=== PATIENT | male | born 1965 | race Caucasian/White ===

== ENCOUNTER → 2017-10-29 16:34 | Outpatient (CLI) | payer OTHER, SELFPAY ==
[2017-10-29 17:27] LABS: AST(SGOT) 44 U/L (15-37); Alanine Aminotransfer ALT/SGPT 59 U/L (16-61); Albumin, Serum 4.1 g/dL (3.2-5.0); Alkaline Phosphatase 107 U/L (45-117); Anion Gap 6 (5-15); BUN 37 mg/dL (7-18); BUN/Creat Ratio 22.7 RATIO (10-20); Bilirubin, Direct 0.26 mg/dL (0.00-0.30); Calcium,Total 8.6 mg/dL (8.5-10.1); Chloride 103 mmol/L (98-107); Creatinine, Serum 1.63 mg/dL (0.70-1.30); EST Glomerular Filtration Rate 47 mL/min (>60); Est Glom Filt Rate - Afr Amer 57 mL/min (>60); Globulin 3.8 g/dL (2.2-4.2); Glucose 91 mg/dL (74-106); Potassium 4.2 mmol/L (3.5-5.1); Protein, Total 7.9 g/dL (6.4-8.2); Sodium Level 135 mmol/L (136-145); T4 Total, Thyroxin 11.3 ug/dL (4.5-12.1); Thyroid Stim Hormone (TSH) 2.18 uIU/mL (0.358-3.74)
== END ==
PROVIDERS: Family Provider Family Medicine; PCP Family Medicine; Visit Provider Internal Medicine Cardiovascular Disease
DX: I48.92 Unspecified atrial flutter (principal); Z95.810 Presence of automatic (implantable) cardiac defibrillator
CPT/HCPCS: 36415; 80048; 80076; 84436; 84443

== ENCOUNTER → 2018-09-02 14:46 | Outpatient (CLI) | payer OTHER, SELFPAY ==
[2018-08-25 15:53] VITALS: BMI 35.2
--- NOTE | 2018-09-02 14:48 | ECHOCS_ITS ---
Reason For Study: Afib/Flutter Procedure This was a 2D Doppler, Color Flow transthoracic echocardiogram. The study was technically difficult. Contrast injection was performed. Exam performed in department. Left Ventricle Normal LV size. The estimated ejection fraction is 30 %. Severe global left ventricular systolic dysfunction. There is severe global hypokinesis of the left ventricle. Right Ventricle Mildly dilated right ventricle. Mild global right ventricular systolic dysfunction. Atria The left atrium is severely enlarged. Normal right atrium. Mitral Valve Mitral valve not well visualized. Tricuspid Valve The tricuspid valve is not well visualized. Mild (1+) tricuspid valve insufficiency. Pulmonary artery systolic pressure is 33 mmHg. Great Vessels Normal aortic root. Pericardium/Pleural No pericardial effusion. Medication 22 gauge I.V. with prn adaptor inserted into right arm. Diluted definity 8ml given slow IV push to enhance endocardial definition. MMode/2D Measurements & Calculations LVIDd: 5.3 cm IVSd: 0.93 cm Ao root diam: 3.7 cm LVIDs: 4.9 cm LVPWd: 0.86 cm LA dimension: 4.6 cm FS: 8.5 % LAV(MOD-sp4): 107.8 ml LA A4 area: 31.5 cm2 Doppler Measurements & Calculations MV E max zackary: 77.6 cm/sec MV V2 max: 80.9 cm/sec MV P1/2t max zackary: 82.4 cm/sec MV max P.6 mmHg MV P1/2t: 52.5 msec MV V2 mean: 40.0 cm/sec MV mean P.78 mmHg MV dec slope: 459.9 cm/sec2 MV V2 VTI: 17.8 cm MVA(P1/2t): 4.2 cm2 Ao V2 max: 78.8 cm/sec LV V1 max: 75.4 cm/sec PA V2 max: 55.1 cm/sec Ao max P.5 mmHg LV V1 max P.3 mmHg TR max zackary: 265.8 cm/sec TR max P.3 mmHg Interpretation Summary Normal LV size. Severe global left ventricular systolic dysfunction. The estimated ejection fraction is 30 %. Contrast injection was performed. Compared to previous study, the left ventricular systolic function is the same.. Ordering Physician: Philip Paz Referring Physician: Philip Paz Performed By: Steve Monroy RCS
== END ==
PROVIDERS: Family Provider Family Medicine; PCP Family Medicine; Referring Provider Internal Medicine Cardiovascular Disease; Visit Provider Internal Medicine Cardiovascular Disease
DX: I25.5 Ischemic cardiomyopathy (principal)
CPT/HCPCS: 93306; Q9957; A4216; C8929

== ENCOUNTER 2019-06-29 08:11 | Day surgery (SDC) | payer OTHER, SELFPAY ==
--- NOTE | 2019-06-05 04:24 | HP_ITS ---
Patient seen and evaluated prior to generator change on day of procedure. No changes noted from office visit. HPI HPI History of Present Illness Surgical H&P: Yes Details: BHAVANI PAYNE, is a 54 M who presents to the office today for a follow-up visit. He has a history of coronary artery disease status post previous anterolateral myocardial infarction. He underwent angioplasty and stenting of the left anterior descending artery. He also has a history of atrial flutter status post ablation twice. In addition he has hypertension hyperlipidemia left ventricular systolic dysfunction with an estimated ejection fraction of 35%. He recently presented again with atypical atrial flutter and was seen by the supervisor ticket sales. He is not always aware of this rhythm. He had been doing quite well on his amiodarone but there were issues about possible side effects and the supervisor ticket sales considered switching him to Tikosyn. He however read the side effects and says that he is not particularly enthused about going on this medication. Pt denies chest, arm, jaw, or neck discomfort. His exercise tolerance is stable. Pt denies symptoms of CHF, palpitations, lightheadedness, dizziness, near syncopal or syncopal episodes. Pt denies edema or claudication issues. Pt. denies orthopnea, PND, fever, chills, blood in urine, blood in stool, myalgia, or unexplainable fatigue. 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: No Is patient in pain?: No Allergies cat dander Allergy (Verified 06/05/19 15:07) Eyes swelling and SOB Medications Zolpidem Tartrate [Ambien] 10 mg PO QHS 08/03/16 [History Confirmed 06/05/19] lansoprazole 15 mg delayed release,disintegrating tablet 15 mg PO QDAY PRN 10/29/17 [History Confirmed 06/05/19] amiodarone 200 mg tablet 200 mg PO QDAY #90 tab 08/26/18 [Rx Confirmed 06/05/19] apixaban 5 mg tablet 5 mg PO BID #180 tab 04/24/19 [Rx Confirmed 06/05/19] furosemide 40 mg tablet 40 mg PO DAILY #90 tab 04/24/19 [Rx Confirmed 06/05/19] levothyroxine 25 mcg tablet 25 mcg PO DAILY #90 tab 04/24/19 [Rx Confirmed 06/05/19] spironolactone 25 mg tablet 25 mg PO DAILY #90 tab 04/24/19 [Rx Confirmed 06/05/19] atorvastatin 40 mg tablet 40 mg PO QHS #90 tab 05/08/19 [Rx Confirmed 06/05/19] carvedilol 25 mg tablet 25 mg PO BID #180 tab 05/08/19 [Rx Confirmed 06/05/19] lisinopril 10 mg tablet 10 mg PO DAILY 06/05/19 [History Confirmed 06/05/19] [facility] Medical History (Updated 02/23/19 @ 10:36 by COOKIE Pantoja) Hypertension (Chronic) Ischemic cardiomyopathy (Chronic) Obesity (BMI 30.0-34.9) (Chronic) Atrial flutter, paroxysmal (Chronic) CAD (coronary artery disease) (Chronic) Diabetes mellitus, type II (Chronic) Hyperlipidemia (Chronic) STEMI (ST elevation myocardial infarction) (Chronic) GERD (gastroesophageal reflux disease) (Chronic) Surgical History (Updated 10/29/17 @ 11:04 by Sandra Anaya) Biventricular ICD (implantable cardioverter-defibrillator) in place (Chronic) History of cardiac radiofrequency ablation (RFA) (Chronic) History of tonsillectomy (Chronic) Hx of inguinal hernia repair (Chronic) Stented coronary artery (Chronic) Family History (Updated 10/29/17 @ 11:00 by Sandra Anaya) Mother CAD (coronary artery disease) Diabetes Father CAD (coronary artery disease) Diabetes Brother Diabetes Social History (Updated 06/05/19 @ 16:24 by LAUREN Mijares) Smoking Status: Former smoker alcohol intake: never substance use type: does not use caffeine: No what type of physical activity do you participate in: walking frequency: 5-6 times per week duration: 30-45 minutes/day seatbelt use: always do you feel safe at home: Yes ROS Const Const: Negative for fatigue, weakness, body ache, fever(s) or chills ENT ENT: Negative for dizziness Cardio Chest Pain: No Palpitations: No Edema: None Muscle aches with walking: None Resp Respiratory: Negative for SOB with activity, SOB at rest, SOB orthopnea\SOB lying down or paroxysmal nocturnal dyspnea GI GI: Negative nausea, vomiting blood/hematemesis, bright, red blood in stools or black,tarry stools : Negative for hematuria or frequent nighttime urination/ nocturia Musc Musc: Negative for muscle aches/ myalgia Skin Skin: Negative non-healing lesions or rash Neuro Neuro: Negative for dizziness, lightheadedness, near syncope, syncope, orthostatic symptoms or weakness Endo Endo: Negative for fatigue Allergy Allergy/Immunology: Negative for rash Cardiology Exam Const Appearance: cooperative, healthy appearing, comfortable and no acute distress Nutritional Appearance: well nourished and obese Orientation: alert, awake and oriented x3 Head Head: normal to inspection Ears: hearing grossly normal bilaterally Nose: external nose normal Face and Sinus: face symmetric Mouth: oral mucosae normal Eyes General: appearance normal, both eyes and all related structures Eyelids: eyelids normal EOM: EOM intact bilaterally Neck Neck: normal visual inspection and no JVD Carotids: normal carotid upstroke Chest Chest inspection: normal inspection of the chest, symmetric chest movement and normal respiratory effort; negative cough Auscultation: Bilateral: Clear to Auscultation Cardio Rate: regular rate Rhythm: regular rhythm Heart sounds: S1 normal and S2 normal; negative rub, gallop or murmur GI GI: normal to inspection and obese Neuro General: alert, awake, oriented x3 and CN's II-XI intact bilaterally Skin Skin: no rashes or lesions noted Extremities Pulses: Normal: Right Posterior Tibial Pulse, Left Posterior Tibial Pulse, Right Radial Pulse, Left Radial Pulse Lower Extremity Edema: None: Bilateral Psych Psychological: normal affect Assessment & Plan 1. Biventricular ICD (implantable cardioverter-defibrillator) in place Z95.810 11/09/14 implant of BIV ICD for ischemic cmp Plan Patient's most recent pacemaker evaluation from 03/24/2019 showed approaching FELIPE. His EKG today in office continues to show ventricular paced rhythm at a rate of 73 bpm. He will undergo generator change with Dr. Menjivar on 06/29/2019. Patient received extensive education regarding medications, laboratory work, urine collection, and chlorhexidine bath prior to procedure. He acknowledged understanding. Orders Orders: 12 Lead EKG performed by [facility] Today 2. Ischemic cardiomyopathy I25.5 Plan He denies any symptoms of acute congestive heart failure. He will continue current medical therapy which includes carvedilol, lisinopril, Lasix, and spironolactone. We will continue to monitor closely. 3. Atherosclerosis of [place] coronary artery of [place] heart without angina pectoris I25.10 Plan Patient denies any chest pain, arm pain, jaw pain, neck pain, shortness of breath, or fatigue suggestive of angina at this time. We will continue to monitor. We will not make any medication regimen changes and will continue risk factor modification. 4. Atrial flutter, paroxysmal I48.92 RFA A-Flutter 02/02/14 @ [facility]; 11/08/2014 ablation of atrial flutter Plan He will continue current medical therapy which includes carvedilol, amiodarone, and Eliquis therapy. He was instructed to hold his Eliquis prior to procedure. Orders Orders: 12 Lead EKG performed by [facility] Today 5. Essential hypertension I10 Plan Patient's blood pressure is well-controlled. We will continue to monitor. We will not make any medication regimen changes. 6. Pure hypercholesterolemia E78.00 Plan He will continue current statin medication. Plan Detail Additional Comments Patient will proceed with generator change with Dr. Menjivar. Thank you for allowing us to participate in the patients plan of care, if you have any questions please do not hesitate to call. This note was generated using a voice recognition system and there may be incorrect words, spelling or punctuation that were not noted when reviewing the office note prior to saving. Coding Level of Care Code Off vis,est,level 2 Diagnoses Biventricular ICD (implantable cardioverter-defibrillator) in place Z95.810 Ischemic cardiomyopathy I25.5 Atherosclerosis of be[place] coronary artery of [place] heart without angina pectoris I25.10 ??Associated angina: without angina ??Coronary Disease-Associated Artery/Lesion type: [place] artery ??[place] vs. transplanted heart: beaver heart Atrial flutter, paroxysmal I48.92 Essential hypertension I10 ??Hypertension type: essential hypertension Pure hypercholesterolemia E78.00 ??Hyperlipidemia type: pure hypercholesterolemia Coding Level of Care Code Off vis,est,level 2 Diagnoses Biventricular ICD (implantable cardioverter-defibrillator) in place Z95.810 Ischemic cardiomyopathy I25.5 Atherosclerosis of [place] coronary artery of [place] heart without angina pectoris I25.10 ??Associated angina: without angina ??Coronary Disease-Associated Artery/Lesion type: [place] artery ??[place] vs. transplanted heart: beaver heart Atrial flutter, paroxysmal I48.92 Essential hypertension I10 ??Hypertension type: essential hypertension Pure hypercholesterolemia E78.00 ??Hyperlipidemia type: pure hypercholesterolemia Supplemental Info Supplemental Information Diagnostics Electrocardiogram 06/05/19 Echocardiogram 09/02/18 Pacemaker Check 03/24/19 06/05/19 1625 <Electronically signed by Saurav Keene> Date _ Saurav MESSINAC
[2019-06-06 09:09] VITALS: BMI 35.6
[2019-06-23 16:04] LABS: Bacteria 0 SEEN /hpf (None Seen); Mucous, Urine 0 SEEN /hpf (<or=2+); Red Blood Cells-Urine 0 SEEN /hpf (0-5); Squamous Epithelial Cells - UA 0 SEEN /hpf (0-5); White Blood Cells 0 SEEN /hpf (0-5)
[2019-06-23 17:12] LABS: Color, Urine Yellow (Yellow); Glucose, Dipstick Normal (Normal); Ketone-Dipstick Negative (Negative); Leukocyte Esterase-Dipstick Negative /ul (Negative); Nitrite-Dipstick Negative (Negative); Occult Blood-Urine Negative /ul (Negative); Protein-Dipstick Negative (Negative); Urine Bilirubin Dipstick Negative (Negative); Urine Clarity Sl. Cloudy (Clear); Urine Urobilinogen Normal (Normal)
[2019-06-23 17:25] LABS: Hematocrit 47.3 % (40-54); Hemoglobin 15.7 g/dL (13.0-16.5); Mean Corp Hgb Conc 33.2 g/dL (32-36); Mean Corpuscular Volume 96.3 fL (80-94); Mean Platelet Vol. 10.9 fl (6.2-12.0); Platelet Count 196 K/mm3 (150-450); RBC Distribution Width CV 12.5 % (11.6-14.6); RBC Distribution Width SD 44.2 fl (35.1-43.9); Red Blood Count 4.91 M/mm3 (4.6-6.2); White Blood Count 8.1 K/mm3 (4.4-11.0)
[2019-06-23 17:31] LABS: International Normalized Ratio 1.5; Prothrombin Time (Protime)PT. 17.5 SECONDS (11.7-14.9)
[2019-06-23 17:51] LABS: Anion Gap 6 (5-15); BUN 26 mg/dL (7-18); BUN/Creat Ratio 17.4 RATIO (10-20); Chloride 102 mmol/L (98-107); Creatinine, Serum 1.49 mg/dL (0.70-1.30); EST Glomerular Filtration Rate 52 mL/min (>60); Est Glom Filt Rate - Afr Amer 63 mL/min (>60); Glucose 95 mg/dL (74-106); Potassium 4.3 mmol/L (3.5-5.1); Sodium Level 135 mmol/L (136-145)
[2019-06-28 09:59] VITALS: BMI 35.8
--- NOTE | 2019-06-29 11:21 | OP.PCM_ITS ---
Report of Operation Date of Procedure: 06/29/19 Description of Surgical Findings:: Preoperative diagnosis is device at end of life for normal battery depletion. Postoperative diagnosis same as above. After informed consent and IV antibiotics the patient was brought to the [facility] catheterization laboratory and the skin over the device was prepped and draped in the usual sterile manner. Intermittent boluses of Versed, and fentanyl were used for sedation and analgesia as well as 1% subcutaneous lidocaine. An incision was made over the pre-existing device. Using blunt and Bovie dissection the pocket was opened and the device was removed. Careful attention was paid not to injure the pre-existing leads. The leads were removed from the device header and they were interrogated. There is normal lead function. Hemostasis was obtained. The pocket was flushed with antibiotic solution. The sponge and needle count were correct. The new device was brought to the field. The leads were placed in the appropriate position in the header and secured by the set screw. The leads and the device were then placed in the pocket. The pocket was closed with a deep layer of running 2-0 Vicryl, a superficial layer of running 4-0 Vicryl, skin with Steri-Strips which were covered with a rolled 4 x 4 and Tegaderm. Patient left the room with the device programmed to proper parameters and there were no complications. The device is a biventricular ICD chamber generator. All lead parameters were tested and found to be functionally normal exceptfordouble counting of the ventricular lead and so the Post ventricular blanking was extended QRS is narrow so programmed VVI 40 Lead and device serial and model numbers are available in the chart documents provided by the device company customer response representative procedure summary.
== END 2019-06-29 14:00 | disposition home or self-care (01) ==
PROVIDERS: Internal Medicine Cardiovascular Disease; Family Provider Family Medicine; PCP Family Medicine; Referring Provider Internal Medicine Cardiovascular Disease; Visit Provider Internal Medicine Cardiovascular Disease
DX: Z95.810 Presence of automatic (implantable) cardiac defibrillator (principal); I25.5 Ischemic cardiomyopathy; I25.10 Atherosclerotic heart disease of native coronary artery without angina pectoris; I48.92 Unspecified atrial flutter; I10 Essential (primary) hypertension; E78.00 Pure hypercholesterolemia, unspecified; I25.2 Old myocardial infarction; K21.9 Gastro-esophageal reflux disease without esophagitis; E11.9 Type 2 diabetes mellitus without complications; E66.9 Obesity, unspecified; Z87.891 Personal history of nicotine dependence; Z68.35 Body mass index [BMI] 35.0-35.9, adult; Z95.5 Presence of coronary angioplasty implant and graft; Z79.02 Long term (current) use of antithrombotics/antiplatelets; Z79.899 Other long term (current) drug therapy
CPT/HCPCS: 33264; 36415; 80048; 81001; 85027; 85610; 93641; 99152; 99153; J7050

== ENCOUNTER 2021-08-19 16:50 | Outpatient (CLI) | payer OTHER, SELFPAY ==
[2021-08-19 17:51] LABS: AST(SGOT) 35 U/L (15-37); Alanine Aminotransfer ALT/SGPT 50 U/L (16-61); Albumin, Serum 3.9 g/dL (3.2-5.0); Alkaline Phosphatase 80 U/L (45-117); Cholesterol 128 mg/dL (200); Globulin 3.6 g/dL (2.2-4.2); High Density Lipoprotein 34 mg/dL; Protein, Total 7.5 g/dL (6.4-8.2); Triglycerides 248 mg/dL; Very Low Density Lipoprotein 50 mg/dL (5-40)
== END 2021-08-19 23:59 | disposition home or self-care (01) ==
LOC: LAB 16:54
PROVIDERS: PCP Family Medicine; Referring Provider Internal Medicine Cardiovascular Disease; Visit Provider Internal Medicine Cardiovascular Disease
DX: E78.00 Pure hypercholesterolemia, unspecified (principal)
CPT/HCPCS: 36415; 80061; 80076

== ENCOUNTER 2021-09-15 14:56 | Outpatient (CLI) | payer OTHER, SELFPAY ==
--- NOTE | 2021-09-15 15:05 | ECHOCS_ITS ---
Reason For Study: Cardiomyopathy Procedure This was a 2D Doppler, Color Flow transthoracic echocardiogram. Contrast injection was performed. The study was technically difficult. Exam performed in department. Left Ventricle Normal LV size. The estimated ejection fraction is 37 %. Moderate segmental systolic dysfunction (see wall motion). Mid-anteroseptal : Hypokinetic. [place] : Hypokinetic. Right Ventricle Normal RV size. ICD or pacer leads identified within the right ventricle. Normal systolic function. Atria Normal left atrium. Normal right atrium. Mitral Valve Normal mitral valve. Tricuspid Valve Normal tricuspid valve. Pulmonic Valve The pulmonic valve is not well visualized. Great Vessels Normal aortic root. The pulmonary artery is normal size. Normal inferior vena cava. Pericardium/Pleural No pericardial effusion. Medication Diluted definity 5ml given slow IV push to enhance endocardial definition. MMode/2D Measurements & Calculations LVIDd: 5.8 cm IVSd: 0.66 cm Ao root diam: 3.0 cm LVIDs: 4.5 cm LVPWd: 1.1 cm FS: 21.9 % LAV(MOD-bp): 79.8 ml LA A4 area: 25.5 cm2 LA dimension(2D): 5.3 cm LAV(MOD-bp) Indexed: 32.3 ml/m2 LAV(MOD-sp2): 79.1 ml LAV(MOD-sp4): 74.1 ml RA A4 area: 17.5 cm2 Doppler Measurements & Calculations MV E max azckary: 95.7 cm/sec Ao V2 max: 93.5 cm/sec LV V1 max: 88.8 cm/sec Ao max P.5 mmHg LV V1 max P.2 mmHg Ao V2 mean: 60.7 cm/sec Ao mean P.7 mmHg Ao V2 VTI: 16.1 cm PA V2 max: 73.3 cm/sec TR max zackary: 242.1 cm/sec TR max P.5 mmHg ECHO/Echo Complete W/ Contrast Interpretation Summary Normal LV size. The estimated ejection fraction is 37 %. Moderate segmental systolic dysfunction (see wall motion). Contrast injection was performed. Compared to previous study, the left ventricu lar systolic function has improved.. Ordering Physician: Philip Paz Referring Physician: Mg Gamble Performed By: Ana Cristina Mena, BEKACS, RVT
== END 2021-09-15 23:59 | disposition home or self-care (01) ==
PROVIDERS: PCP Family Medicine; Referring Provider Internal Medicine Cardiovascular Disease; Visit Provider Internal Medicine Cardiovascular Disease
DX: I42.9 Cardiomyopathy, unspecified (principal)
CPT/HCPCS: 93306; Q9957; A4216; C8929

== ENCOUNTER 2021-09-29 23:31 | Inpatient (IN) | payer OTHER, SELFPAY ==
[2021-09-29 23:32] VITALS: BP 155/86; PULSE 60; RESP 18; TEMP 36.6; O2SAT 100; BMI 41.5
[2021-09-30] VITALS (19 sets, daily range): BP systolic 91–124; BP diastolic 60–94; PULSE 52–99; RESP 14–19; TEMP 36.2–36.6; O2SAT 92–100; BMI 40.4
--- NOTE | 2021-09-30 00:01 | EKG12_ITS ---
Test Reason : WEAKNESS Blood Pressure : / mmHG Vent. Rate : 048 BPM Atrial Rate : 308 BPM P-R Int : 000 ms QRS Dur : 142 ms QT Int : 462 ms P-R-T Axes : 126 -10 119 degrees QTc Int : 412 ms Atrial flutter with variable A-V block Right bundle branch block Septal infarct , age undetermined Abnormal ECG Confirmed by RENE WILHELM, JOSÉ ([id number]), development editor MAYO MENSAH ([id number]) on 10/02/2021 9:09:06 AM Referred By: BONI Confirmed By:JOSÉ LÓPEZ MD
--- NOTE | 2021-09-30 00:02 | EDS_ITS ---
HPI History of Present Illness Chief Complaint: Weakness Informant: patient Narrative Narrative: Patient presents with about 2 weeks of decreased energy, polyuria, polydipsia. He states his vision is actually improved and he does not have to wear his glasses and is anymore to see well. He has no headaches. No chest pain. No abdominal pain. He is eating and drinking normally. He is getting up at night about every 2 hours to urinate which is a new thing. He denies ever having diabetes but his diagnosis list that he brought in list type 2 diabetes yet he is on no meds for this. He does have a history of A. fib flutter. His normal heart rate is 50-60. He is on Eliquis and is taking it. There has not been any bleeding in the stools or anywhere else. No fevers or chills. Nothing really makes symptoms better or worse. [facility] Medical History (Updated 09/30/21 @ 02:[address] Pedro Ugarte MD) Atherosclerotic heart disease of [place] coronary artery without angina pectoris Atrial fibrillation Cardiac arrest with ventricular fibrillation (09/16/13) Chest pain Chronic atrial flutter CPAP (continuous positive airway pressure) dependence Diabetes Diabetes mellitus, type II Essential (primary) hypertension Former smoker GERD (gastroesophageal reflux disease) History of cardioversion (2014) History of ST elevation myocardial infarction (STEMI) (09/16/13) Hyperlipidemia Hypertension ICD (implantable cardioverter-defibrillator) in place Irregular heart beat Ischemic cardiomyopathy Myocardial infarct Obesity (BMI 30.0-34.9) 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 Pacemaker Sleep apnea Home Medications ascorbate calcium (vitamin C) 500 mg tablet 500 mg PO DAILY 02/04/21 [History Last Taken Unknown] cholecalciferol (vitamin D3) 25 mcg (1,000 unit) capsule 25 mcg PO DAILY 02/04/21 [History Last Taken Unknown] apixaban 5 mg tablet 5 mg PO BID #180 tab 08/19/21 [Rx Last Taken Unknown] atorvastatin 40 mg tablet 40 mg PO QHS #90 tab 08/19/21 [Rx Last Taken Unknown] carvedilol 25 mg tablet 25 mg PO BID #180 tab 08/19/21 [Rx Last Taken Unknown] furosemide 40 mg tablet 40 mg PO DAILY #90 tab 08/19/21 [Rx Last Taken Unknown] lisinopril 10 mg tablet 10 mg PO DAILY #90 tab 08/19/21 [Rx Last Taken Unknown] spironolactone 25 mg tablet 25 mg PO DAILY #90 tab 08/19/21 [Rx Last Taken Unknown] Allergy/AdvReac Type Severity Reaction Status Date / Time cat dander Allergy Eyes Verified 09/29/21 23:34 swelling and SOB Family History Mother CAD (coronary artery disease) Diabetes Father CAD (coronary artery disease) Diabetes Brother Diabetes Surgical History Biventricular ICD (implantable cardioverter-defibrillator) in place (06/29/19) History of cardiac radiofrequency ablation (RFA) (09/2014) History of coronary artery stent placement (09/16/13) History of tonsillectomy Hx of inguinal hernia repair Social History Smoking Status: Former smoker alcohol intake: never substance use type: does not use caffeine: No what type of physical activity do you participate in: walking frequency: 5-6 times per week duration: 30-45 minutes/day seatbelt use: always do you feel safe at home: Yes ROS ROS ED Constitutional Constitutional ED: Reports fever(s) Eyes Eyes: Reports change in vision ENT ENT ED: Denies rhinorrhea Cardiovascular Cardiovascular: Denies chest pain or palpitations Respiratory/Chest Respiratory/Chest: Denies cough or dyspnea Gastrointestinal Gastrointestinal: Denies abdominal pain, diarrhea, nausea or vomiting Genitourinary Genitourinary ED: Denies dysuria or hematuria Musculoskeletal Musculoskeletal: Denies myalgias Integumentary Denies rash Neurologic Neurologic: Denies headache(s) or weakness Psychiatric Psychiatric: Denies anxiety or depression Endocrine Endocrinology: Reports polydipsia and polyuria Allergic/Immunologic Allergic/Immunologic ED: Denies urticaria EXAM Physical Exam Const Vital Signs: 09/29/21 23:32 09/30/21 01:32 Temperature 97.9 F Temperature Source Temporal Pulse Rate 60 54 L Respiratory Rate 18 17 Blood Pressure 155/86 H 93/76 Blood Pressure Mean 109 81 Pulse Ox 100 96 Oxygen Delivery Method Room Air Room Air Positive well nourished and well developed General Appearance ED: well developed; Negative for pallor HEENT Reports dry mucous membranes Negative for trauma or tenderness Mouth ED: Yes dry mucous membranes Mouth: dry mucous membranes Eyes General Eye ED: Negative for pale conjunctiva or scleral icterus Neck no JVD Chest Wall inspection of chest normal Resp normal respiratory effort and clear to auscultation bilaterally Auscultation: Negative for rales, rhonchi or wheezes Cardio Negative for regular rate or regular rhythm Rate: bradycardia Rhythm: abnormal rhythm GI normal to inspection, nondistended, normoactive bowel sounds, non-tender and non-distended Palpation: soft Back/Spine no CVA tenderness Extremity normal to inspection General Extremety ED: Negative for edema or tenderness General Extremity: Negative for edema Neuro Sensorium / Orientation: alert Psych mental status grossly normal Skin no rashes or lesions noted and no wounds General Skin Exam: Negative for jaundice or pallor MDM MDM MDM Narrative Medical decision making narrative: Patient CBC is normal. His electrolytes have multiple abnormalities. Sodium is very low. However, when corrected for glucose, the sodium actually calculates to 121?128 depending on method. Patient's potassium is high but I am not seeing definitive signs of this on his EKG. This should come down with correction of glucose and fluid status. Creatinine was a elevation from baseline. Glucose was very high at 1077. Urine showed 1000 glucose. Patient's symptoms were consistent with new onset diabetes. I have given him some fluids and insulin. We will have to gently give these [id number]. He does have a history of CHF so I do not want to give too much fluids too fast. He is also awake alert and comfortable. I discussed the case with youth services librarian, Dr. Chan. I also discussed case with hospitalist. Patient will be admitted. Lab Data Attestation: I reviewed the patient's lab results. Labs: Laboratory Results - last 24 hr 09/30/21 09/30/21 09/30/21 00:14 00:44 00:44 WBC 9.3 RBC 4.92 Hgb 15.8 Hct 42.9 MCV 87.2 MCH 32.1 H MCHC 36.8 H RDW Std Deviation 38.4 RDW Coeff of Annamarie 11.9 Plt Count 241 MPV 11.4 Immature Gran % (Auto) 0.900 Neut % (Auto) 77.8 H Lymph % (Auto) 11.8 L Steele % (Auto) 8.8 Eos % (Auto) 0.4 Baso % (Auto) 0.3 Absolute Neuts (auto) 7.2 Absolute Lymphs (auto) 1.10 Nucleated RBC % 0 Sodium 105 L* Potassium 6.9 H* Chloride 71 L* Carbon Dioxide 23.0 Anion Gap 11 BUN 57 H Creatinine 1.85 H Estim Creat Clear Calc 45.49 Est GFR (MDRD) Af Amer 49 L Est GFR (MDRD) Non-Af 40 L BUN/Creatinine Ratio 30.8 H Glucose 1077 H* Calcium 10.1 Urine Color Yellow Urine Clarity Clear Urine pH 6.0 Ur Specific [place] 1.010 Urine Protein Negative Urine Glucose (UA) 1000 H Urine Ketones Negative Urine Occult Blood Negative Urine Nitrite Negative Urine Bilirubin Negative Urine Urobilinogen Normal Ur Leukocyte Esterase Negative Urine RBC 0 SEEN Urine WBC 0 SEEN Ur Squamous Epith Cells 0 SEEN Urine Bacteria 0 SEEN Urine Mucus 0 SEEN EKG Initial EKG: Comments: EKG done for bradycardia read by me shows atrial flutter with ventricular rate of 48. Slight variable block. No acute ST elevation. No notable peaked T waves. QRS duration is long at 142 ms. QTc is normal. Patient states his normal rhythm is atrial flutter with a rate of about 52. Discharge Plan Dx/Rx/DC Orders Clinical Impression: Diabetes mellitus, new onset, Hyponatremia, Acute hyperkalemia, Acute kidney injury, Dehydration, Atrial flutter Disposition Disposition: Acute Care [facility]
[2021-09-30 00:27] LABS: Bacteria 0 SEEN /hpf (None Seen); Mucous, Urine 0 SEEN /hpf (<or=2+); Red Blood Cells-Urine 0 SEEN /hpf (0-5); Squamous Epithelial Cells - UA 0 SEEN /hpf (0-5); White Blood Cells 0 SEEN /hpf (0-5)
[2021-09-30 00:29] LABS: Color, Urine Yellow (Yellow); Glucose, Dipstick 1000 mg/dl (Normal); Ketone-Dipstick Negative (Negative); Leukocyte Esterase-Dipstick Negative /ul (Negative); Nitrite-Dipstick Negative (Negative); Occult Blood-Urine Negative /ul (Negative); Protein-Dipstick Negative (Negative); Urine Bilirubin Dipstick Negative (Negative); Urine Clarity Clear (Clear); Urine Urobilinogen Normal (Normal)
[2021-09-30 00:50] LABS: Absolute Neutrophil Count 7.2 X10^3/uL (2.0-7.7); Basophil# 0.03 X10^3/uL; Basophil% 0.3 % (0-1); Eosinophil# 0.04 X10^3/uL; Eosinophils% 0.4 % (0-5); Hematocrit 42.9 % (40-54); Hemoglobin 15.8 g/dL (13.0-16.5); Lymphocyte % 11.8 % (19-41); Mean Corp Hgb Conc 36.8 g/dL (32-36); Mean Corpuscular Hgb 32.1 pg (27.0-32.0); Mean Corpuscular Volume 87.2 fL (80-94); Mean Platelet Vol. 11.4 fl (6.2-12.0); Monocyte# 0.82 X10^3/uL; Monocyte% 8.8 % (0-10); NRBC Flagged by Analyzer 0 % (0-5); Neutrophil # 7.24 X10^3/uL (2.7-7.7); Neutrophil % 77.8 % (47-70); Platelet Count 241 K/mm3 (150-450); RBC Distribution Width CV 11.9 % (11.6-14.6); RBC Distribution Width SD 38.4 fl (35.1-43.9); Red Blood Count 4.92 M/mm3 (4.6-6.2); White Blood Count 9.3 K/mm3 (4.4-11.0)
[2021-09-30] MEDS: Insulin Lispro 100 UNIT/ML INSULN.PEN 12 UNIT SC (01:08)
[2021-09-30 01:15] LABS: Anion Gap 11 (5-15); BUN 57 mg/dL (7-18); BUN/Creat Ratio 30.8 RATIO (10-20); Calcium,Total 10.1 mg/dL (8.5-10.1); Chloride 71 mmol/L (98-107); Creatinine, Serum 1.85 mg/dL (0.70-1.30); EST Glomerular Filtration Rate 40 mL/min (>60); Est Glom Filt Rate - Afr Amer 49 mL/min (>60); Estimated Creatinine Clearance 45.49 ml/min; Glucose 1077 mg/dL (74-106); Potassium 6.9 mmol/L (3.5-5.1); Sodium Level 105 mmol/L (136-145)
--- NOTE | 2021-09-30 01:45 | HP.PCM_ITS ---
HPI - General HPI Narrative BHAVANI PAYNE, is a 56 M who presents to the emergency room with generalized weakness and fatigue. Patient has no previous past medical history of diabetes however, presents to the emergency room with a sugar greater than 1000. His sodium is significantly low at 105 with a potassium of 6.9. Patient does deny chest pain shortness of breath fever chills, nausea vomiting or diarrhea. He does have a significant past medical history of atrial flutter that is rate controlled and he is status post 4 ablation procedures. Will admit for new onset diabetes and severe hyponatremia to ICU. [facility] Medical History (Updated 09/30/21 @ 01:[address] Ramy Wheatley MD) Atherosclerotic heart disease of [place] coronary artery without angina pectoris Atrial fibrillation Cardiac arrest with ventricular fibrillation (09/16/13) Chest pain Chronic atrial flutter CPAP (continuous positive airway pressure) dependence Diabetes Diabetes mellitus, type II Essential (primary) hypertension Former smoker GERD (gastroesophageal reflux disease) History of cardioversion (2014) History of ST elevation myocardial infarction (STEMI) (09/16/13) Hyperlipidemia Hypertension ICD (implantable cardioverter-defibrillator) in place Irregular heart beat Ischemic cardiomyopathy Myocardial infarct Obesity (BMI 30.0-34.9) 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 Pacemaker Sleep apnea Home Medications ascorbate calcium (vitamin C) 500 mg tablet 500 mg PO DAILY 02/04/21 [History Last Taken Unknown] cholecalciferol (vitamin D3) 25 mcg (1,000 unit) capsule 25 mcg PO DAILY 02/04/21 [History Last Taken Unknown] apixaban 5 mg tablet 5 mg PO BID #180 tab 08/19/21 [Rx Last Taken Unknown] atorvastatin 40 mg tablet 40 mg PO QHS #90 tab 08/19/21 [Rx Last Taken Unknown] carvedilol 25 mg tablet 25 mg PO BID #180 tab 08/19/21 [Rx Last Taken Unknown] furosemide 40 mg tablet 40 mg PO DAILY #90 tab 08/19/21 [Rx Last Taken Unknown] lisinopril 10 mg tablet 10 mg PO DAILY #90 tab 08/19/21 [Rx Last Taken Unknown] spironolactone 25 mg tablet 25 mg PO DAILY #90 tab 08/19/21 [Rx Last Taken Unknown] Allergy/AdvReac Type Severity Reaction Status Date / Time cat dander Allergy Eyes Verified 09/29/21 23:34 swelling and SOB Family History Mother CAD (coronary artery disease) Diabetes Father CAD (coronary artery disease) Diabetes Brother Diabetes Surgical History Biventricular ICD (implantable cardioverter-defibrillator) in place (06/29/19) History of cardiac radiofrequency ablation (RFA) (09/2014) History of coronary artery stent placement (09/16/13) History of tonsillectomy Hx of inguinal hernia repair Social History Smoking Status: Former smoker alcohol intake: never substance use type: does not use caffeine: No what type of physical activity do you participate in: walking frequency: 5-6 times per week duration: 30-45 minutes/day seatbelt use: always do you feel safe at home: Yes ROS Constitutional Constitutional: Reports fatigue and weakness; Denies anorexia Eyes Eyes: Denies blurry vision ENT HEENT: Denies abnormal hearing Cardiovascular Cardiovascular: Denies chest pain Respiratory/Chest Respiratory/Chest: Denies cough Gastrointestinal Gastrointestinal: Denies abdominal pain Genitourinary Genitourinary: Denies dysuria Musculoskeletal Musculoskeletal: Denies back pain Integumentary Integumentary: Denies dry skin Neurologic Neurologic: Denies abnormal gait Psychiatric Psychiatric: Denies anxiety Vital Signs Vital Signs Vital Signs: 09/29/21 23:32 09/30/21 01:32 Temperature 97.9 F Temperature Source Temporal Pulse Rate 60 54 L Respiratory Rate 18 17 Blood Pressure 155/86 H 93/76 Blood Pressure Mean 109 81 Pulse Ox 100 96 Oxygen Delivery Method Room Air Room Air Weight Weight: 290 lb Body Mass Index (BMI) 41.5 Physical Exam Const oriented x3 HEENT normocephalic and head/scalp atraumatic Eyes PERRL Neck supple Lymph Lymphatic: no lymphadenopathy noted Resp normal respiratory effort Cardio S1 normal heart sound and S2 normal heart sound Rhythm: abnormal rhythm irregularly irregular GI normal to inspection, nondistended, normoactive bowel sounds Extremity no clubbing, cyanosis or edema Skin General Skin Exam: turgor normal Neuro CN's II-XII intact bilaterally Psych affect normal Results Lab / Micro Data Result Diagrams: 09/30/21 00:44 09/30/21 00:44 Labs: Laboratory Results - last 24 hr 09/30/21 00:14: Urine Color Yellow, Urine Clarity Clear, Urine pH 6.0, Ur Specific [place] 1.010, Urine Protein Negative, Urine Glucose (UA) 1000 H, Urine Ketones Negative, Urine Occult Blood Negative, Urine Nitrite Negative, Urine Bilirubin Negative, Urine Urobilinogen Normal, Ur Leukocyte Esterase Negative, Urine RBC 0 SEEN, Urine WBC 0 SEEN, Ur Squamous Epith Cells 0 SEEN, Urine Bacteria 0 SEEN, Urine Mucus 0 SEEN 09/30/21 00:44: WBC 9.3, RBC 4.92, Hgb 15.8, Hct 42.9, MCV 87.2, MCH 32.1 H, MCHC 36.8 H, RDW Std Deviation 38.4, RDW Coeff of Annamarie 11.9, Plt Count 241, MPV 11.4, Immature Gran % (Auto) 0.900, Neut % (Auto) 77.8 H, Lymph % (Auto) 11.8 L, [place] % (Auto) 8.8, Eos % (Auto) 0.4, Baso % (Auto) 0.3, Absolute Neuts (auto) 7.2, Absolute Lymphs (auto) 1.10, Nucleated RBC % 0 09/30/21 00:44: Sodium 105 L*, Potassium 6.9 H*, Chloride 71 L*, Carbon Dioxide 23.0, Anion Gap 11, BUN 57 H, Creatinine 1.85 H, Estim Creat Clear Calc 45.49, Est GFR (MDRD) Af Amer 49 L, Est GFR (MDRD) Non-Af 40 L, BUN/Creatinine Ratio 30.8 H, Glucose 1077 H*, Calcium 10.1 Assessment & Plan Assessment/Plan (1) Chronic atrial flutter: (2) Atherosclerotic heart disease of [place] coronary artery without angina pectoris: (3) 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 New onset diabetes?admit patient to ICU with consult Dr. Chan due to complications with hyponatremia we will monitor glucose levels as patient becomes hydrated and adjust with sliding scale insulin and low-dose every 6 hours while n.p.o. 2. Hyponatremia?normal saline at a rate of 125 cc/h repeat BMP early in the a.m. 3. Hyperkalemia?patient has received insulin and will recheck BMP in the morning 4. History of atrial flutter patient has a controlled rate and is on Eliquis, patient reports having had 4 ablation procedures 5. Coronary artery disease status post cardiac arrest [address] elevation DC status post 1 stent. Patient has biventricular implanted ICD 6. DVT prophylaxis?patient is anticoagulated on Eliquis already Charges/Coding Visit Charges Inpatient E&M: 16702 Init Hosp L3
[2021-09-30 02:36] LABS: Bedside Glucose > 500 mg/dL (74-106)
[2021-09-30 02:41] LABS: Bedside Glucose > 500 mg/dL (74-106)
[2021-09-30] MEDS: 0.9% Normal Saline 1,000 ML 125 ML IV ×3 (04:10→19:14)
[2021-09-30 04:32] LABS: Anion Gap 13 (5-15); BUN 49 mg/dL (7-18); BUN/Creat Ratio 31.6 RATIO (10-20); Calcium,Total 9.2 mg/dL (8.5-10.1); Chloride 81 mmol/L (98-107); Creatinine, Serum 1.55 mg/dL (0.70-1.30); EST Glomerular Filtration Rate 49 mL/min (>60); Est Glom Filt Rate - Afr Amer 60 mL/min (>60); Estimated Creatinine Clearance 54.29 ml/min; Glucose 696 mg/dL (74-106); Sodium Level 116 mmol/L (136-145)
[2021-09-30] MEDS: Insulin Lispro 100 UNIT/ML INSULN.PEN SC ×4 (04:49→21:22)
--- NOTE | 2021-09-30 05:45 | EX.PCM.CONCC ---
Assessment & Plan Assessment/Plan (1) Diabetes mellitus, new onset: PLAN: RECOMMENDATIONS: 1. Continue supplemental IV fluid hydration. 2. Hold on dietary advancement until sugars are under better control. 3. Continue sliding scale insulin coverage. 4. Initiate basal insulin regimen today. 5. Continue Eliquis per home regimen. 6. Check hemoglobin A1c. 7. Provide diabetic nutritional education. IMPRESSIONS: 1. Newly diagnosed diabetes mellitus with hyperosmolar hyperglycemic state The patient presented to the hospital with generalized weakness, polyuria and polydipsia. He was never previously diagnosed with diabetes mellitus. The patient was most likely in a hyperosmolar hyperglycemic state. The patient was managed with IV fluid resuscitation and insulin supplementation. Once blood sugars are improved, dietary advancement can be considered. We will continue sliding scale coverage, with plans to initiate a basal insulin regimen today. The patient will require diabetic nutritional education. 2. Hyponatremia/acute kidney injury Most likely secondary to osmotic diuresis leading to intravascular volume depletion in the setting of #1. Corrected serum sodium for hyperglycemia is improving. Continue gentle IV fluid hydration and continue to monitor chemistry profile. Renal function is improving. No current indication for renal replacement therapy. 3. Chronic atrial flutter/ischemic cardiomyopathy/hypertension/hyperlipidemia/obesity/obstructive sleep apnea Complicates care, management, recovery and prognosis. Continue home medications as indicated along with nocturnal Pap therapy per home regimen. This note was generated with [employer] dictation software. It may contain incorrect words, spelling, and punctuation that were not noted in checking the note before signing. HPI Consult Data Date of Consult: 10/01/21 HPI Narrative Reason for Consultation: Hyponatremia HPI Narrative: The patient is a 56-year-old male, with a history as outlined below, who presented to the emergency department on September 30 with generalized weakness, polyuria and polydipsia. The patient does have a history of coronary artery disease status post angioplasty and stenting of the LAD, along with a history of atrial flutter status post ablation x2. The patient also has a history of obstructive sleep apnea and is currently prescribed nocturnal AutoPap therapy. He has never been previously diagnosed with diabetes mellitus. He is a non-smoker. On presentation to the emergency department, the patient was noted to be afebrile and hemodynamically stable. He was maintaining appropriate oxygen saturations on room air. Laboratory evaluation revealed no evidence of a leukocytosis. Chemistry profile was notable for a sodium of 105, potassium of 6.9, chloride of 71 and creatinine of 1.85. Glucose was elevated to greater than 1000. Urine analysis was largely unremarkable. The patient received supplemental IV fluid hydration along with insulin. He was admitted to the medical intensive care unit. This morning, the patient reported feeling much better. His most recent chemistry profile revealed a corrected sodium of 126-130, based upon a glucose of 696. The patient is mentating appropriately. Creatinine has improved to 1.5. [facility] Medical History (Updated 09/30/21 @ 02:[address] Pedro Ugarte MD) Atherosclerotic heart disease of [place] coronary artery without angina pectoris Atrial fibrillation Cardiac arrest with ventricular fibrillation (09/16/13) Chest pain Chronic atrial flutter CPAP (continuous positive airway pressure) dependence Diabetes Diabetes mellitus, type II Essential (primary) hypertension Former smoker GERD (gastroesophageal reflux disease) History of cardioversion (2014) History of ST elevation myocardial infarction (STEMI) (09/16/13) Hyperlipidemia Hypertension ICD (implantable cardioverter-defibrillator) in place Irregular heart beat Ischemic cardiomyopathy Myocardial infarct Obesity (BMI 30.0-34.9) 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 Pacemaker Sleep apnea Home Medications ascorbate calcium (vitamin C) 500 mg tablet 500 mg PO DAILY 02/04/21 [History Last Taken Unknown] cholecalciferol (vitamin D3) 25 mcg (1,000 unit) capsule 25 mcg PO DAILY 02/04/21 [History Last Taken Unknown] apixaban 5 mg tablet 5 mg PO BID #180 tab 08/19/21 [Rx Last Taken Unknown] atorvastatin 40 mg tablet 40 mg PO QHS #90 tab 08/19/21 [Rx Last Taken Unknown] carvedilol 25 mg tablet 25 mg PO BID #180 tab 08/19/21 [Rx Last Taken Unknown] furosemide 40 mg tablet 40 mg PO DAILY #90 tab 08/19/21 [Rx Last Taken Unknown] lisinopril 10 mg tablet 10 mg PO DAILY #90 tab 08/19/21 [Rx Last Taken Unknown] spironolactone 25 mg tablet 25 mg PO DAILY #90 tab 08/19/21 [Rx Last Taken Unknown] Allergy/AdvReac Type Severity Reaction Status Date / Time cat dander Allergy Eyes Verified 09/29/21 23:34 swelling and SOB Family History Mother CAD (coronary artery disease) Diabetes Father CAD (coronary artery disease) Diabetes Brother Diabetes Surgical History Biventricular ICD (implantable cardioverter-defibrillator) in place (06/29/19) History of cardiac radiofrequency ablation (RFA) (09/2014) History of coronary artery stent placement (09/16/13) History of tonsillectomy Hx of inguinal hernia repair Social History Smoking Status: Former smoker alcohol intake: never substance use type: does not use caffeine: No what type of physical activity do you participate in: walking frequency: 5-6 times per week duration: 30-45 minutes/day seatbelt use: always do you feel safe at home: Yes ROS Constitutional Constitutional: Reports fatigue, malaise and weakness Eyes Eyes: Denies blurry vision or change in vision ENT HEENT: Denies dizziness, dysphagia, epistaxis or headache(s) Cardiovascular Cardiovascular: Denies chest pain, dizziness or dyspnea Respiratory/Chest Respiratory/Chest: Denies chest tightness, dyspnea or hemoptysis Gastrointestinal Gastrointestinal: Denies diarrhea, nausea or vomiting Genitourinary Genitourinary: Reports polyuria and urinary frequency Musculoskeletal Musculoskeletal: Denies arthralgias, back pain or joint pain Integumentary Integumentary: Denies lesions, rash or skin ulcer Neurologic Neurologic: Denies abnormal gait or abnormal speech Psychiatric Psychiatric: Denies anxiety or depression Endocrine Endocrinology: Reports fatigue Hematologic/Lymphatic Hematologic/Lymphatic: Denies easy bleeding or easy bruising Physical Exam Const alert, oriented x3 and no apparent distress General Appearance: cooperative Nutritional Appearance: morbidly obese HEENT normocephalic and head/scalp atraumatic Eyes PERRL, EOMs intact bilaterally and conjunctivae normal Neck supple General: trachea midline Chest inspection of chest normal Resp normal respiratory effort Auscultation: Negative for rales, rhonchi or wheezes Cardio Rate: bradycardia Rhythm: abnormal rhythm GI normal to inspection, nondistended, normoactive bowel sounds Extremity no clubbing, cyanosis or edema Skin no rashes or lesions noted Neuro oriented x3, CN's II-XII intact bilaterally, moves all extremities and no focal motor deficits Psych cooperative and affect normal Lab / Micro Data Result Diagrams: 10/01/21 04:55 10/01/21 04:55 Labs: Laboratory Results - last 24 hr 09/30/21 00:14: Urine Color Yellow, Urine Clarity Clear, Urine pH 6.0, Ur Specific [place] 1.010, Urine Protein Negative, Urine Glucose (UA) 1000 H, Urine Ketones Negative, Urine Occult Blood Negative, Urine Nitrite Negative, Urine Bilirubin Negative, Urine Urobilinogen Normal, Ur Leukocyte Esterase Negative, Urine RBC 0 SEEN, Urine WBC 0 SEEN, Ur Squamous Epith Cells 0 SEEN, Urine Bacteria 0 SEEN, Urine Mucus 0 SEEN 09/30/21 00:26: POC Glucose > 500 H* 09/30/21 00:44: WBC 9.3, RBC 4.92, Hgb 15.8, Hct 42.9, MCV 87.2, MCH 32.1 H, MCHC 36.8 H, RDW Std Deviation 38.4, RDW Coeff of Annamarie 11.9, Plt Count 241, MPV 11.4, Immature Gran % (Auto) 0.900, Neut % (Auto) 77.8 H, Lymph % (Auto) 11.8 L, [place] % (Auto) 8.8, Eos % (Auto) 0.4, Baso % (Auto) 0.3, Absolute Neuts (auto) 7.2, Absolute Lymphs (auto) 1.10, Nucleated RBC % 0 09/30/21 00:44: Sodium 105 L*, Potassium 6.9 H*, Chloride 71 L*, Carbon Dioxide 23.0, Anion Gap 11, BUN 57 H, Creatinine 1.85 H, Estim Creat Clear Calc 45.49, Est GFR (MDRD) Af Amer 49 L, Est GFR (MDRD) Non-Af 40 L, BUN/Creatinine Ratio 30.8 H, Glucose 1077 H*, Calcium 10.1 09/30/21 02:33: POC Glucose > 500 H* 09/30/21 04:00: Sodium 116 L*, Potassium 5.0, Chloride 81 L, Carbon Dioxide 22.0, Anion Gap 13, BUN 49 H, Creatinine 1.55 H, Estim Creat Clear Calc 54.29, Est GFR (MDRD) Af Amer 60, Est GFR (MDRD) Non-Af 49 L, BUN/Creatinine Ratio 31.6 H, Glucose 696 H*, Calcium 9.2 Charges/Coding Visit Charges Inpatient E&M: 85040 Init Hosp L3
--- NOTE | 2021-09-30 06:26 | PN.HOSP_ITS ---
Subjective Subjective Patient with significant blood sugar improvement with transition to subcu regimen for sex therapist and de-escalation from ICU to PCU status. Discussed patient's current presentation with significantly elevated hemoglobin A1c and need for initiation of long-acting, short-acting insulins as well as nutrition consultation with education and teaching as well as life changes to which patient was eager and amenable. He notes significantly improved prior urinary frequency issue. He notes that he is less fatigued than prior. Patient denies fevers, chills, nausea, emesis, abdominal pain, chest pain or dyspnea. Objective Data Objective Data Vital Signs: Vital Signs Temp Pulse Resp BP Pulse Ox 98 F 61 17 121/78 H 96 09/30/21 03:41 09/30/21 06:00 09/30/21 06:00 09/30/21 06:00 09/30/21 06:00 Oxygen Flow Rate (L/min) 2 Oxygen Delivery Method Nasal Cannula Weight: 281 lb 4.957 oz Body Mass Index (BMI) 40.4 Intake & Output: Intake and Output for Last 24 Hours 09/28/21 09/29/21 09/30/21 23:59 23:59 23:59 Intake Total 566.6 / 566.6 Output Total 650 / 650 Balance -83.4 / -83.4 Lab / Micro Data Result Diagrams: 09/30/21 00:44 09/30/21 14:14 Labs: Laboratory Results - last 24 hr 09/30/21 00:14: Urine Color Yellow, Urine Clarity Clear, Urine pH 6.0, Ur Specific [place] 1.010, Urine Protein Negative, Urine Glucose (UA) 1000 H, Urine Ketones Negative, Urine Occult Blood Negative, Urine Nitrite Negative, Urine Bilirubin Negative, Urine Urobilinogen Normal, Ur Leukocyte Esterase Negative, Urine RBC 0 SEEN, Urine WBC 0 SEEN, Ur Squamous Epith Cells 0 SEEN, Urine Bacte john 0 SEEN, Urine Mucus 0 SEEN 09/30/21 00:26: POC Glucose > 500 H* 09/30/21 00:44: WBC 9.3, RBC 4.92, Hgb 15.8, Hct 42.9, MCV 87.2, MCH 32.1 H, MCHC 36.8 H, RDW Std Deviation 38.4, RDW Coeff of [place]namarie 11.9, Plt Count 241, MPV 11.4, Immature Gran % (Auto) 0.900, Neut % (Auto) 77.8 H, Lymph % (Auto) 11.8 L, [place] % (Auto) 8.8, Eos % (Auto) 0.4, Baso % (Auto) 0.3, Absolute Neuts (auto) 7.2, Absolute Lymphs (auto) 1.10, Nucleated RBC % 0 09/30/21 00:44: Sodium 105 L*, Potassium 6.9 H*, Chloride 71 L*, Carbon Dioxide 23.0, Anion Gap 11, BUN 57 H, Creatinine 1.85 H, Estim Creat Clear Calc 45.49, Est GFR (MDRD) Af Amer 49 L, Est GFR (MDRD) Non-Af 40 L, BUN/Creatinine Ratio 30.8 H, Glucose 1077 H*, Calcium 10.1 09/30/21 02:33: POC Glucose > 500 H* 09/30/21 04:00: Sodium 116 L*, Potassium 5.0, Chloride 81 L, Carbon Dioxide 22.0, Anion Gap 13, BUN 49 H, Creatinine 1.55 H, Estim Creat Clear Calc 54.29, Est GFR (MDRD) Af Amer 60, Est GFR (MDRD) Non-Af 49 L, BUN/Creatinine Ratio 31.6 H, Glucose 696 H*, Calcium 9.2 Physical Exam Narrative Physical Examination: General: Awake, alert, oriented x 3 and cooperative, seated upright in ICU bed in no apparent distress, notes feeling improved. Skin: Normal color, normal turgor, no icterus, no cyanosis. HEENT: AT/NC, EOMI, PERRLA, mildly dry MM. Lungs: Diminished, greater bases, appropriate effort, no rales, ronchi or wheezing. Heart: Regular rate and rhythm; no gallop, rub audible. Abdomen: Soft, morbidly obese, NTTP, ND, distant mildly hyperactive BS. Extremities: No cyanosis, clubbing, or edema. Neurological: Patient awake, alert, oriented as noted, cognitive function intact; pupils equally reactive to light and accommodation, cranial nerves II- XII grossly normal, moving all 4 extremities, no focal deficits, strength improved, mildly global decreased Psychiatric: Affect appears normal, no acute evidence of depressive or anxiety feelings. Assessment & Plan Assessment/Plan (1) Diabetes mellitus, new onset: (2) Hyponatremia: (3) Acute hyperkalemia: PLAN: The patient is a 56 y/o M w/ PMHx: HTN, HLD, CAD w/ ischemic cardiomyopathy, PAF/Flutter, Morbid Obesity, KATHY who presents to the [facility] ED on 09/30/21 with history of generalized weakness, fatigue and polyuria. #1. Severe hyponatremia secondary to acute new onset diabetes mellitus type II: Patient significant hyponatremia likely secondary to somatic diuresis leading to intravascular volume depletion in the setting of newly diagnosed diabetes mellitus with HHS, corrected serum sodium for hyperglycemia is significantly improving, patient was not initiated on 3% secondary to stable appearance and in the setting of new onset diabetes with HHS, renal function also improving with initial RASHEL presentation, initially elevated potassium level also decreasing with insulin initiation, will continue to trend BMP, given stability transitioning from ICU to PCU status, sex therapist consulted and following. #2. New Onset Diabetes mellitus type II with HHS: Patient initially admitted to the ICU given concurrent severe electrolyte disturbances, initiated on insulin regimen, hemoglobin A1c obtained noted to be greater than 12%, no anion gap demonstrated, increase long-acting insulin overlapping with scheduled short acting with diet initiation, magnesium and phosphorus levels obtained, nutrition consulted for education and teaching. #3. Acute hyperkalemia: Upon presentation patient initial potassium was noted to be 6.9 however this was slightly hemolyzed with the ED regimen administration and repeat potassium following 5.0 with continued trending, 10/01/2019 2 repeat potassium 4.8, continue to trend. #4. Acute kidney injury: Secondary to acute presentation as noted #1. Admission BUN/Cr 51/1.85, prior baseline creatinine noted to be 1.0-1.1. Patient was hydrated, nephrotoxic regimen held and renal function continues to improve, 09/30/2021 BUN/creatinine 44/1.48, repeat level in AM. #5. PAF/flutter: We will continue patient home Coreg and apixaban regimen. #6. CAD, ischemic cardiomyopathy: Status post AICD placement, will continue apixaban, statin, Coreg regimen, plan to resume lisinopril as well as spironolactone and Lasix once renal function is appropriate and electrolytes have been corrected appropriately #7. Hypertension: Continue home regimen including Coreg, holding spironolactone, lisinopril and Lasix given RASHEL as noted and electrolyte disturbances, PRN hydralazine. #8. Morbid Obesity: Weight loss and lifestyle changes encouraged, nutrition consulted. #9. KATHY: CPAP q HS. #10. DVT prophylaxis: SCDs, Eliquis. Charges/Coding Procedures Hospitalists Procedures: Other Procedure - See Report (Non-billable given billed after midnight: [id number])
[2021-09-30] MEDS: Insulin Lispro 100 UNIT/ML INSULN.PEN 10 UNIT SC ×2 (06:35→16:31)
[2021-09-30 07:12] LABS: AST(SGOT) 40 U/L (15-37); Alanine Aminotransfer ALT/SGPT 55 U/L (16-61); Albumin, Serum 3.5 g/dL (3.2-5.0); Alkaline Phosphatase 157 U/L (45-117); Bilirubin, Direct 0.47 mg/dL (0.00-0.30); Globulin 3.4 g/dL (2.2-4.2); Magnesium 2.4 mg/dL (1.6-2.6); Phosphorus 3.5 mg/dL (2.5-4.9); Protein, Total 6.9 g/dL (6.4-8.2); Thyroid Stim Hormone (TSH) 1.97 uIU/mL (0.358-3.74)
[2021-09-30 07:52] LABS: Osmolality, Serum 294 mOsm/KG (275-295)
[2021-09-30 07:52] LABS: Osmolality, Urine 467 mOsm/KG
[2021-09-30] MEDS: APIXABAN 5 MG TABLET PO ×2 (08:27→21:21)
[2021-09-30] MEDS: Carvedilol 25 MG Tablet PO (08:28)
[2021-09-30] MEDS: Cholecalciferol (VIT D3) 25 MCG TABLET (1,000 UNITS) PO (08:28)
[2021-09-30] MEDS: Lisinopril 10 MG Tablet PO (08:28)
[2021-09-30 09:01] LABS: Bedside Glucose 472 mg/dL (74-106)
[2021-09-30] MEDS: Insulin Lispro 100 UNIT/ML INSULN.PEN 20 UNIT SC ×3 (09:08→14:50)
[2021-09-30 09:23] LABS: Hemoglobin A1c 12.9 % (3.8-5.6)
[2021-09-30 10:01] LABS: Bedside Glucose 446 mg/dL (74-106)
--- NOTE | 2021-09-30 10:40 | CASEMGMT ---
RN CM Face to Face with patient for initial transition planning/care coordination assessment. RN CM introduced self and role at [facility]. Patient lying in bed, alert and oriented. Patient willing to participate in assessment and is able to answer all questions appropriately. Care providers, pharmacy, and demographics verified. Patient wishes to discharge home, denies need for home health at this time. Patient states he has no further needs or concerns at this time. CM to follow for discharge planning needs that may arise. PCP: Tye Specialists: Brandi, straight tooth gear generator operator Preferred Pharmacy: [facility]; [facility] retail at discharge. Insurance: [employer] Prescription Benefit: yes Living Will/HPOA: none LNOK: son, daughter Living Arrangements: Patient lives alone in a single story home with 2 steps and railing to enter. Patient states he is independent at home. Transportation: self, son, daughter DME/HHC: Patient states he has cpap at home. No previous HHC. Patient will need glucometer and testing supplies at discharge, CM to assist. Disposition Plan: Patient to discharge home with family support and follow-up plans in place. Betty BELTRAN, RN, CM
[2021-09-30] MEDS: Insulin Glargine-YFGN 100 UNIT/ML Pen 15 UNIT SC (11:00)
[2021-09-30 13:16] LABS: Bedside Glucose > 500 mg/dL (74-106)
[2021-09-30] MEDS: Insulin Lispro 100 UNIT/ML INSULN.PEN 15 UNIT SC (13:33)
[2021-09-30 13:36] LABS: Bedside Glucose 423 mg/dL (74-106)
[2021-09-30 14:26] LABS: Bedside Glucose 454 mg/dL (74-106)
[2021-09-30] MEDS: Insulin Glargine-YFGN 100 UNIT/ML Pen 10 UNIT SC (14:55)
[2021-09-30 14:58] LABS: Anion Gap 8 (5-15); BUN 44 mg/dL (7-18); BUN/Creat Ratio 29.7 RATIO (10-20); Calcium,Total 8.8 mg/dL (8.5-10.1); Chloride 88 mmol/L (98-107); Creatinine, Serum 1.48 mg/dL (0.70-1.30); EST Glomerular Filtration Rate 52 mL/min (>60); Est Glom Filt Rate - Afr Amer 63 mL/min (>60); Estimated Creatinine Clearance 56.86 ml/min; Glucose 442 mg/dL (74-106); Potassium 4.8 mmol/L (3.5-5.1); Sodium Level 121 mmol/L (136-145)
[2021-09-30 17:11] LABS: Bedside Glucose 345 mg/dL (74-106)
[2021-09-30 21:01] LABS: Bedside Glucose 174 mg/dL (74-106)
[2021-09-30] MEDS: Atorvastatin Calcium 40 MG Tablet PO (21:21)
[2021-09-30] MEDS: Insulin Glargine-YFGN 100 UNIT/ML Pen 25 UNIT SC (21:23)
[2021-10-01] MEDS: 0.9% Normal Saline 1,000 ML 125 ML IV (02:57)
[2021-10-01 03:00] VITALS: PULSE 53
[2021-10-01 03:02] VITALS: BP 93/70; PULSE 57; RESP 18; TEMP 37; O2SAT 95
[2021-10-01 03:06] LABS: Bedside Glucose 116 mg/dL (74-106)
[2021-10-01 03:21] LABS: Bedside Glucose > 500 mg/dL (74-106)
[2021-10-01 05:00] VITALS: BP 104/71; PULSE 53; RESP 18; TEMP 36.6; O2SAT 100
[2021-10-01 05:17] LABS: Absolute Lymphocyte Count 1.32 X10^3/uL (0.83-4.51); Absolute Neutrophil Count 4.5 X10^3/uL (2.0-7.7); Basophil# 0.03 X10^3/uL; Basophil% 0.5 % (0-1); Eosinophil# 0.13 X10^3/uL; Hematocrit 41.1 % (40-54); Lymphocyte # 1.32 X10^3/ul (0.83-4.51); Mean Corp Hgb Conc 36.5 g/dL (32-36); Mean Corpuscular Hgb 32.1 pg (27.0-32.0); Mean Platelet Vol. 10.7 fl (6.2-12.0); Monocyte# 0.58 X10^3/uL; Monocyte% 8.8 % (0-10); NRBC Flagged by Analyzer 0 % (0-5); Neutrophil # 4.49 X10^3/uL (2.7-7.7); Neutrophil % 67.8 % (47-70); Platelet Count 190 K/mm3 (150-450); RBC Distribution Width CV 11.9 % (11.6-14.6); Red Blood Count 4.67 M/mm3 (4.6-6.2); White Blood Count 6.6 K/mm3 (4.4-11.0)
[2021-10-01 05:51] LABS: ALB/GLOB Ratio 0.9 RATIO (0.9-2.4); AST(SGOT) 56 U/L (15-37); Alanine Aminotransfer ALT/SGPT 56 U/L (16-61); Albumin, Serum 2.8 g/dL (3.2-5.0); Alkaline Phosphatase 67 U/L (45-117); Anion Gap 6 (5-15); BUN 32 mg/dL (7-18); BUN/Creat Ratio 32.8 RATIO (10-20); Calcium,Total 8.2 mg/dL (8.5-10.1); Chloride 97 mmol/L (98-107); Creatinine, Serum 0.98 mg/dL (0.70-1.30); EST Glomerular Filtration Rate 84 mL/min (>60); Est Glom Filt Rate - Afr Amer 102 mL/min (>60); Estimated Creatinine Clearance 85.87 ml/min; Glucose 129 mg/dL (74-106); Potassium 3.8 mmol/L (3.5-5.1); Protein, Total 5.8 g/dL (6.4-8.2); Sodium Level 126 mmol/L (136-145)
[2021-10-01 06:30] VITALS: PULSE 53
--- NOTE | 2021-10-01 07:01 | PCM.PN.INT ---
Assessment & Plan Assessment/Plan (1) Diabetes mellitus, new onset: PLAN: RECOMMENDATIONS: 1. Continue supplemental IV fluid hydration with ongoing sodium monitoring. 2. Continue basal and sliding scale insulin coverage. 3. Continue Eliquis per home regimen. 4. Continue nocturnal Pap therapy per home regimen. 5. Encourage incentive spirometer use and mobilize patient as tolerated. IMPRESSIONS: 1. Newly diagnosed diabetes mellitus with hyperosmolar hyperglycemic state The patient presented to the hospital with generalized weakness, polyuria and polydipsia. He was never previously diagnosed with diabetes mellitus. The patient was most likely in a hyperosmolar hyperglycemic state. The patient was managed with IV fluid resuscitation and insulin supplementation. Hemoglobin A1c was noted to be 13. Plan to continue basal and sliding scale insulin coverage. 2. Hyponatremia/acute kidney injury Improving. Most likely secondary to osmotic diuresis leading to intravascular volume depletion in the setting of #1. Continue gentle IV fluid hydration and continue to monitor chemistry profile. Creatinine has normalized. 3. Chronic atrial flutter/ischemic cardiomyopathy/hypertension/hyperlipidemia/obesity/obstructive sleep apnea Complicates care, management, recovery and prognosis. Continue home medications as indicated along with nocturnal Pap therapy per home regimen. This note was generated with RECESS. dictation software. It may contain incorrect words, spelling, and punctuation that were not noted in checking the note before signing. Subjective Subjective The patient was seen and examined at the bedside this morning. Events from the last 24 hours have been reviewed. The patient is currently afebrile, hemodynamically stable and maintaining appropriate oxygen saturations on room air. The patient was compliant with nocturnal Pap therapy. He is currently documented to be overall net +2.6 L for the hospitalization. Sodium has improved to 126. Creatinine has normalized. Hemoglobin A1c was noted to be 13. Blood glucose levels have significantly improved. Objective Data Objective Data The patient's most recent lab work, culture data and imaging studies have all been personally reviewed. Vital Signs: Vital Signs Temp Pulse Resp BP Pulse Ox 98 F 53 L 18 104/71 100 10/01/21 05:00 10/01/21 06:30 10/01/21 05:00 10/01/21 05:00 10/01/21 05:00 Oxygen Flow Rate (L/min) 2 Oxygen Delivery Method CPAP Weight: 129.1 kg Body Mass Index (BMI) 40.4 Intake & Output: Intake and Output for Last 24 Hours 09/29/21 09/30/21 10/01/21 23:59 23:59 23:59 Intake Total 3012.43 / 3112.43 1100 / 1100 Output Total 1450 / 1450 0 / 0 Balance 1562.43 / 1662.43 1100 / 1100 Lab / Micro Data Attestation: I reviewed the patient's lab results. Result Diagrams: 10/01/21 04:55 10/01/21 04:55 Labs: Laboratory Results - last 24 hr 09/30/21 00:15: Urine Osmolality 467 09/30/21 00:44: Hemoglobin A1c 12.9 H 09/30/21 04:00: Phosphorus 3.5, Magnesium 2.4, Total Bilirubin 2.20 H, Direct Bilirubin 0.47 H, AST 40 H, ALT 55, Alkaline Phosphatase 157 H, Total Protein 6.9, Albumin 3.5, Globulin 3.4, TSH 1.97 09/30/21 06:11: POC Glucose > 500 H* 09/30/21 06:40: Serum Osmolality 294 09/30/21 08:54: POC Glucose 472 H* 09/30/21 09:56: POC Glucose 446 H 09/30/21 10:59: POC Glucose > 500 H* 09/30/21 13:29: POC Glucose 423 H 09/30/21 14:14: Sodium 121 L, Potassium 4.8, Chloride 88 L, Carbon Dioxide 25.0, Anion Gap 8, BUN 44 H, Creatinine 1.48 H, Estim Creat Clear Calc 56.86, Est GFR (MDRD) Af Amer 63, Est GFR (MDRD) Non-Af 52 L, BUN/Creatinine Ratio 29.7 H, Glucose 442 H, Calcium 8.8 09/30/21 14:19: POC Glucose 454 H* 09/30/21 16:30: POC Glucose 345 H 09/30/21 20:56: POC Glucose 174 H 10/01/21 02:49: POC Glucose 116 H 10/01/21 04:55: WBC 6.6, RBC 4.67, Hgb 15.0, Hct 41.1, MCV 88.0, MCH 32.1 H, MCHC 36.5 H, RDW Std Deviation 38.0, RDW Coeff of Annamarie 11.9, Plt Count 190, MPV 10.7, Immature Gran % (Auto) 0.900, Neut % (Auto) 67.8, Lymph % (Auto) 20.0, [place] % (Auto) 8.8, Eos % (Auto) 2.0, Baso % (Auto) 0.5, Absolute Neuts (auto) 4.5, Absolute Lymphs (auto) 1.32, Nucleated RBC % 0 10/01/21 04:55: Sodium 126 L, Potassium 3.8, Chloride 97 L, Carbon Dioxide 23.0, Anion Gap 6, BUN 32 H, Creatinine 0.98, Estim Creat Clear Calc 85.87, Est GFR (MDRD) Af Amer 102, Est GFR (MDRD) Non-Af 84, BUN/Creatinine Ratio 32.8 H, Glucose 129 H, Calcium 8.2 L, Total Bilirubin 1.30 H, AST 56 H, ALT 56, Alkaline Phosphatase 67, Total Protein 5.8 L, Albumin 2.8 L, Globulin 3.0, Albumin/Globulin Ratio 0.9 Physical Exam Const alert, oriented x3 and no apparent distress General Appearance: cooperative Nutritional Appearance: morbidly obese HEENT normocephalic and head/scalp atraumatic Eyes PERRL, EOMs intact bilaterally and conjunctivae normal Neck supple General: trachea midline Chest inspection of chest normal Resp normal respiratory effort Auscultation: Negative for rales, rhonchi or wheezes Cardio Rate: bradycardia Rhythm: abnormal rhythm GI normal to inspection, nondistended, normoactive bowel sounds Extremity no clubbing, cyanosis or edema Skin no rashes or lesions noted Neuro oriented x3, CN's II-XII intact bilaterally, moves all extremities and no focal motor deficits Psych cooperative and affect normal Charges/Coding Visit Charges Inpatient E&M: 71414 Subs Hosp L2
[2021-10-01 07:26] VITALS: O2SAT 98
[2021-10-01 08:03] VITALS: BP 102/68; PULSE 55; RESP 18; TEMP 36.1; O2SAT 100
[2021-10-01] MEDS: Insulin Lispro 100 UNIT/ML INSULN.PEN 10 UNIT SC ×2 (08:13→12:08)
[2021-10-01] MEDS: Carvedilol 25 MG Tablet PO (08:14)
[2021-10-01] MEDS: Cholecalciferol (VIT D3) 25 MCG TABLET (1,000 UNITS) PO (08:14)
[2021-10-01] MEDS: APIXABAN 5 MG TABLET PO (08:14)
[2021-10-01] MEDS: Insulin Lispro 100 UNIT/ML INSULN.PEN SC ×2 (08:14→12:07)
[2021-10-01] MEDS: Insulin Glargine-YFGN 100 UNIT/ML Pen 25 UNIT SC (08:15)
[2021-10-01 09:26] LABS: Bedside Glucose 177 mg/dL (74-106)
--- NOTE | 2021-10-01 09:55 | PCM.DC ---
Discharge Instructions Diet Discharge Diet: - (1800 ADA/cardiac diet.) Activity Discharge Activity: Return to Normal Activity Dressing / Incision Call your doctor if you observe: Fever of 101 or Higher, Numbness or Tingling, Shortness of breath, Dizziness, Fainting spells, Chest pain, Increased palpitations (irregular heartbeat) and - (Low or high blood sugars that are persistent.) Follow Up Care Test Results: Test results from this visit will be discussed in further detail at your follow-up appointment, if applicable. Discharge Plan Admission Admit Date/Time: 09/30/21 01:57 Primary Reason for Your Visit: New onset Diabetes mellitus type II w/ HHS, Electrolyte disturbances Attending Provider: Tana Mohamud Primary Care Provider: Mg Gamble Consulting Providers: Teo Quiroga ; Robi Chan ; Mahsa Saul MICA PLATE LAYER HAND Instructions Patient Instructions: Long-Term Complications of Diabetes, Managing Type 2 Diabetes, How to Check Your Blood Sugar, Oral Medicines for Type 2 Diabetes, Insulin and Type 2 Diabetes, Healthy Meals for Diabetes, Eating Out When You Have Diabetes, Diabetes: Meal Planning, Diabetes Learn Serve Portion Size Additional Instructions / Restrictions: DISCHARGE RECOMMENDATIONS: Please continue to keep a log of your blood sugars upon discharge. You have been started on long-acting 25 units insulin glargine twice daily in addition to scheduled 5 units of short acting lispro insulin three times daily with meals with a sliding scale overlap in case your blood sugars are elevated. We have also at discharge started a low dose oral metformin regimen. We have started this only once daily but it will be trended upward once we assure you tolerate the medication as it often has GI side effects. IF YOU HAVE LOW blood sugars immediately contact your primary care office as we will need to make recommendations/alterations to your regimen. If you have lower blood sugars DO NOT take your short-acting insulin until you review your trends with the office. RECOMMENDED FOLLOW-UP LABS: Please have repeat basic metabolic panel with your primary care physician at follow-up to assure continued resolution of your sodium level, potassium level and renal function. Discharge Orders/Prescriptions Prescriptions: New insulin glargine-yfgn 100 unit/mL (3 mL) Insulin Pen 25 unit subcut BID 30 Days Qty: 15 RF: 0 insulin lispro [Humalog KwikPen Insulin] 100 unit/mL Insulin Pen 5 unit subcut TIDAC 30 Days Qty: 4.5 RF: 0 insulin lispro [Humalog KwikPen Insulin] 100 unit/mL Insulin Pen 1 - 7 unit subcut ACHS 30 Days Qty: 15 RF: 0 metformin 500 mg tablet 500 mg PO DAILY 30 Days Qty: 30 RF: 0 Continued cholecalciferol (vitamin D3) 25 mcg (1,000 unit) capsule 25 mcg PO DAILY RF: 0 ascorbate calcium (vitamin C) 500 mg tablet 500 mg PO DAILY RF: 0 spironolactone 25 mg tablet 25 mg PO DAILY Qty: 90 RF: 4 lisinopril 10 mg tablet 10 mg PO DAILY Qty: 90 RF: 3 furosemide 40 mg tablet 40 mg PO DAILY Qty: 90 RF: 4 carvedilol 25 mg tablet 25 mg PO BID Qty: 180 RF: 4 atorvastatin 40 mg tablet 40 mg PO QHS Qty: 90 RF: 4 Eliquis 5 mg tablet 5 mg PO BID Qty: 180 RF: 4 Other Ambulatory Orders: Glucometer (Routine) Location: None Selected Ordered By: Dr. Tana Mohamud Referrals / Follow Up: Philip Paz MD [STAFF PHYSICIAN] - (Follow-up as previously arranged or earlier if any concerns.) Carlos Alberto Fuentes MD [STAFF PHYSICIAN] - 10/03/21 2:30 pm (Follow-up with Dr. Fuentes in 1 week to review admission, review blood sugar trend and obtain repeat basic metabolic panel.) Disposition Disposition (needs filled in before D/C Order can be placed): Home, Self Care
--- NOTE | 2021-10-01 09:57 | PCM.DC.SUM ---
Providers Date of Admission: 09/30/21 Primary Care Physician: Dr. Mg Gamble MD Consultations 09/30/21 03:39 Consult: Tai Chi Instructor / Pulmonary Medicine Routine Consulting Provider: Pulmonary Medicine mehrdad Parker Reason for Consult: icu management EMERGENT Consult: Yes MD Notified: Yes Date Notified: 09/30/21 Time Notified: 02:01 Method of Notification: Verbal Reason For Visit: NEW ONSET DIABETES, SEVERE HYPONATREMIA Diagnosis Discharge Diagnosis (1) Diabetes mellitus, new onset: Status: Acute Code(s): E11.9 - Type 2 diabetes mellitus without complications Medications at Discharge Home Medications ascorbate calcium (vitamin C) 500 mg tablet 500 mg PO DAILY 02/04/21 cholecalciferol (vitamin D3) 25 mcg (1,000 unit) capsule 25 mcg PO DAILY 02/04/21 apixaban 5 mg tablet 5 mg PO BID #180 tab 08/19/21 atorvastatin 40 mg tablet 40 mg PO QHS #90 tab 08/19/21 carvedilol 25 mg tablet 25 mg PO BID #180 tab 08/19/21 furosemide 40 mg tablet 40 mg PO DAILY #90 tab 08/19/21 lisinopril 10 mg tablet 10 mg PO DAILY #90 tab 08/19/21 spironolactone 25 mg tablet 25 mg PO DAILY #90 tab 08/19/21 insulin glargine-yfgn 25 unit SUBCUT BID 30 Days #15 ml 10/01/21 insulin lispro [Humalog KwikPen Insulin] 1 - 7 unit SUBCUT ACHS 30 Days #15 ml 10/01/21 insulin lispro [Humalog KwikPen Insulin] 5 unit SUBCUT TIDAC 30 Days #4.5 ml 10/01/21 metformin 500 mg PO DAILY 30 Days #30 tab 10/01/21 Hospital Course Operations None Procedures EKG Summary of Care Provided Minutes Spent on Discharge: 35 Hospital Course: Discharge Diagnoses: #1. Severe hyponatremia secondary to acute new onset diabetes mellitus type II likely secondary to osmotic diuresis with intravascular volume depletion #2. New Onset Diabetes mellitus type II with HHS #3. Acute hyperkalemia, resolved #4. Acute kidney injury, Secondary to acute presentation as noted #1 #5. PAF/flutter #6. CAD, ischemic cardiomyopathy s/p AICD #7. Hypertension #8. Morbid Obesity #9. KATHY on CPAP q HS #10. Hyperlipidemia Discharge Summary: The patient is a 56 y/o M w/ PMHx: HTN, HLD, CAD w/ ischemic cardiomyopathy, PAF/Flutter, Morbid Obesity, KATHY who presented to the [facility] ED on 09/30/21 with history of generalized weakness, fatigue and polyuria. Patient initially admitted to the ICU given notable hyponatremia but once improved transition to the PCU. Patient with significant hyponatremia likely secondary to somatic diuresis leading to intravascular volume depletion in the setting of newly diagnosed diabetes mellitus with HHS, corrected serum sodium for hyperglycemia improved, patient was not initiated on 3% secondary to stable appearance and in the setting of new onset diabetes with HHS, renal function also improved with initial RASHEL presentation (09/30/21 BUN/Cr 57/1.85->10/01/21 BUN/Cr 32/0.98), initially elevated potassium level (09/30/21 6.9-->10/01/32 3.8) also normalized with insulin initiation. Hemoglobin A1c obtained noted to be greater than 12%, no anion gap demonstrated, initiated and adjusted long-acting insulin overlapping with scheduled short acting with diet initiation, magnesium and phosphorus levels obtained, nutrition consulted for education and teaching and education regarding use of glucometer and BS checks performed. Patient clinically improved with controlled BS on 25 u BID lantus, 5 u shortacting lispro with meals and overlapping ISS. Upon discharge patient also started on low dose metformin with discussion this would be trended upward once assure GI side effects tolerated if present. Discussed case with Dr. Viveros as patient interested in transitioning PCP to be able to have greater ease of records with his Race Car Mechanic Dr. Paz. Patient discharged to home in stable improved condition with information regarding BS trending and what to do if elevated or low BS persistently. Patient clinically improved much quicker than expected with improvement of his BS and electrolytes therefore felt appropriate for discharge to home with continuation adjusted regimen as noted with early close follow-up with PCP with whom case was discussed. Discharge Time: > 35 Minutes DAY OF DISCHARGE PROGRESS NOTE: Subjective: Patient without acute event overnight per self and nursing report. Patient BS improved on regimen altered the day prior. This AM education being given for how to self check BS and use glucometer. Awaiting nutrition consultation for education/teaching. Patient denies fever, chills, nausea, emesis, abdominal pain, chest pain or dyspnea. Patient agreeable to discharge to home. Patient will be discharged with follow-up with primary care physician, specifically Dr. Fuentes as noted. Objective: T 97, heart rate 55, BP 102/68, respiratory rate 18, 100% on room air. Physical Examination: General: Awake, alert, oriented x 3 and cooperative, seated upright in PCU bedside chair, NAD. Skin: Normal color, normal turgor, no icterus, no cyanosis. HEENT: AT/NC, EOMI, PERRLA, MMM. Lungs: Diminished, greater bases, appropriate effort, no rales, ronchi or wheezing. Heart: Mildly bradycardic with regular rhythm; no gallop, rub audible. Abdomen: Soft, morbidly obese, NTTP, ND, normal BS. Extremities: No cyanosis, clubbing, or edema. Neurological: Patient awake, alert, oriented as noted, cognitive function intact; pupils equally reactive to light and accommodation, cranial nerves II-XII grossly normal, moving all 4 extremities, no focal deficits, strength improved, preserved. Psychiatric: Affect appears normal, no acute evidence of depressive or anxiety feelings. Assessment and Plan: Please see hospital summary above. Weight / BMI Weight Weight: 284 lb 9.868 oz Body Mass Index (BMI) 40.4 ABG / Lab / Microbiology Data Result Diagrams: 10/01/21 04:55 10/01/21 04:55 Laboratory: Laboratory Results - last 24 hr 09/30/21 06:11: POC Glucose > 500 H* 09/30/21 09:56: POC Glucose 446 H 09/30/21 10:59: POC Glucose > 500 H* 09/30/21 13:29: POC Glucose 423 H 09/30/21 14:14: Sodium 121 L, Potassium 4.8, Chloride 88 L, Carbon Dioxide 25.0, Anion Gap 8, BUN 44 H, Creatinine 1.48 H, Estim Creat Clear Calc 56.86, Est GFR (MDRD) Af Amer 63, Est GFR (MDRD) Non-Af 52 L, BUN/Creatinine Ratio 29.7 H, Glucose 442 H, Calcium 8.8 09/30/21 14:19: POC Glucose 454 H* 09/30/21 16:30: POC Glucose 345 H 09/30/21 20:56: POC Glucose 174 H 10/01/21 02:49: POC Glucose 116 H 10/01/21 04:55: WBC 6.6, RBC 4.67, Hgb 15.0, Hct 41.1, MCV 88.0, MCH 32.1 H, MCHC 36.5 H, RDW Std Deviation 38.0, RDW Coeff of Annamarie 11.9, Plt Count 190, MPV 10.7, Immature Gran % (Auto) 0.900, Neut % (Auto) 67.8, Lymph % (Auto) 20.0, [place] % (Auto) 8.8, Eos % (Auto) 2.0, Baso % (Auto) 0.5, Absolute Neuts (auto) 4.5, Absolute Lymphs (auto) 1.32, Nucleated RBC % 0 10/01/21 04:55: Sodium 126 L, Potassium 3.8, Chloride 97 L, Carbon Dioxide 23.0, Anion Gap 6, BUN 32 H, Creatinine 0.98, Estim Creat Clear Calc 85.87, Est GFR (MDRD) Af Amer 102, Est GFR (MDRD) Non-Af 84, BUN/Creatinine Ratio 32.8 H, Glucose 129 H, Calcium 8.2 L, Total Bilirubin 1.30 H, AST 56 H, ALT 56, Alkaline Phosphatase 67, Total Protein 5.8 L, Albumin 2.8 L, Globulin 3.0, Albumin/Globulin Ratio 0.9 10/01/21 08:10: POC Glucose 177 H D/C Instructions Discharge Diet: - (1800 ADA/cardiac diet.) Call your doctor if you observe: Fever of 101 or Higher, Numbness or Tingling, Shortness of breath, Dizziness, Fainting spells, Chest pain, Increased palpitations (irregular heartbeat) and - (Low or high blood sugars that are persistent.) Meaningful Use Info Meaningful Use Diagnoses (Choose all that apply): None applicable Discharge Plan Admission Admit Date/Time: 09/30/21 01:57 Primary Reason for Your Visit: New onset Diabetes mellitus type II w/ HHS, Electrolyte disturbances Attending Provider: Tana Mohamud Primary Care Provider: Mg Gamble Consulting Providers: Teo Quiroga ; Robi Chan ; Mahsa Saul DENTAL BILLER Instructions Patient Instructions: Long-Term Complications of Diabetes, Managing Type 2 Diabetes, How to Check Your Blood Sugar, Oral Medicines for Type 2 Diabetes, Healthy Meals for Diabetes, Eating Out When You Have Diabetes, Diabetes Learn Serve Portion Size, Diabetes: Meal Planning, Insulin and Type 2 Diabetes Additional Instructions / Restrictions: DISCHARGE RECOMMENDATIONS: Please continue to keep a log of your blood sugars upon discharge. You have been started on long-acting 25 units insulin glargine twice daily in addition to scheduled 5 units of short acting lispro insulin three times daily with meals with a sliding scale overlap in case your blood sugars are elevated. We have also at discharge started a low dose oral metformin regimen. We have started this only once daily but it will be trended upward once we assure you tolerate the medication as it often has GI side effects. IF YOU HAVE LOW blood sugars immediately contact your primary care office as we will need to make recommendations/alterations to your regimen. If you have lower blood sugars DO NOT take your short-acting insulin until you review your trends with the office. RECOMMENDED FOLLOW-UP LABS: Please have repeat basic metabolic panel with your primary care physician at follow-up to assure continued resolution of your sodium level, potassium level and renal function. Discharge Orders/Prescriptions Prescriptions: New insulin glargine-yfgn 100 unit/mL (3 mL) Insulin Pen 25 unit subcut BID 30 Days Qty: 15 RF: 0 insulin lispro [Humalog KwikPen Insulin] 100 unit/mL Insulin Pen 5 unit subcut TIDAC 30 Days Qty: 4.5 RF: 0 insulin lispro [Humalog KwikPen Insulin] 100 unit/mL Insulin Pen 1 - 7 unit subcut ACHS 30 Days Qty: 15 RF: 0 metformin 500 mg tablet 500 mg PO DAILY 30 Days Qty: 30 RF: 0 Continued cholecalciferol (vitamin D3) 25 mcg (1,000 unit) capsule 25 mcg PO DAILY RF: 0 ascorbate calcium (vitamin C) 500 mg tablet 500 mg PO DAILY RF: 0 spironolactone 25 mg tablet 25 mg PO DAILY Qty: 90 RF: 4 lisinopril 10 mg tablet 10 mg PO DAILY Qty: 90 RF: 3 furosemide 40 mg tablet 40 mg PO DAILY Qty: 90 RF: 4 carvedilol 25 mg tablet 25 mg PO BID Qty: 180 RF: 4 atorvastatin 40 mg tablet 40 mg PO QHS Qty: 90 RF: 4 Eliquis 5 mg tablet 5 mg PO BID Qty: 180 RF: 4 Other Ambulatory Orders: Glucometer (Routine) Location: None Selected Ordered By: Dr. Tana Mohamud Referrals / Follow Up: Philip Paz MD [STAFF PHYSICIAN] - (Follow-up as previously arranged or earlier if any concerns.) Carlos Alberto Fuentes MD [STAFF PHYSICIAN] - 10/03/21 2:30 pm (Follow-up with Dr. Fuentes in 1 week to review admission, review blood sugar trend and obtain repeat basic metabolic panel.) Disposition Disposition (needs filled in before D/C Order can be placed): Home, Self Care Charges/Coding Visit Charges Inpatient E&M: 79777 Disch Hosp
--- NOTE | 2021-10-01 09:59 | CASEMGMT ---
Addendum entered by Betty Martinez 10/01/21 12:54: Per pharmacy, pt's insulin/meds will total about $430 and most of this is deductible, pt updated and states has an HSA card that he will use. Per [facility] pharmacy, they do not carry the glucometer that is in-network with pt's insurance but could order in for tomorrow but pt would need to check his blood sugar this evening. Per [facility] pharmacy, the glucometer that is coming up as preferred is the Freestyle [place] Lite. Call to [facility] and per the pharmacist, they do have plenty of these in stock. [facility] pharmacy is aware to forward script to [facility] [place]. Pt updated on all, voices understanding and voices no further questions/concerns/needs. Braden HEBERT CM Original Note: Dr. Mohamud would like to know if Dr. Fuentes is in-network with pt's insurance. Per [employer] website, Dr. Fuentes is in-network with pt's insurance. Dr. Mohamud updated. Call to [facility] pharmacy and they state they can run glucometer on pt's insurance and then will call this ANUP CAMPOS back. CM to follow. Braden HEBERT CM
[2021-10-01 12:15] LABS: Bedside Glucose 430 mg/dL (74-106)
== END 2021-10-01 13:37 | disposition home or self-care (01) | DRG 638 ==
LOC: ED 09-30 01:57 → ICU 09-30 02:19 → PCU 09-30 12:19
PROVIDERS: Internal Medicine Critical Care Medicine; Admitting Provider Family Medicine; Emergency Provider Emergency Medicine; PCP Family Medicine; Visit Provider Family Medicine
DX: E11.00 Type 2 diabetes mellitus with hyperosmolarity without nonketotic hyperglycemic-hyperosmolar coma (NKHHC) (principal); N17.9 Acute kidney failure, unspecified; I48.92 Unspecified atrial flutter; E87.1 Hypo-osmolality and hyponatremia; Z68.41 Body mass index [BMI] 40.0-44.9, adult; I48.0 Paroxysmal atrial fibrillation; E86.0 Dehydration; E11.65 Type 2 diabetes mellitus with hyperglycemia; E66.01 Morbid (severe) obesity due to excess calories; E78.00 Pure hypercholesterolemia, unspecified; E87.5 Hyperkalemia; I25.5 Ischemic cardiomyopathy; I10 Essential (primary) hypertension; E78.5 Hyperlipidemia, unspecified; I25.10 Atherosclerotic heart disease of native coronary artery without angina pectoris; G47.33 Obstructive sleep apnea (adult) (pediatric); I25.2 Old myocardial infarction; Z79.01 Long term (current) use of anticoagulants; Z95.810 Presence of automatic (implantable) cardiac defibrillator; Z87.891 Personal history of nicotine dependence; Z95.5 Presence of coronary angioplasty implant and graft
CPT/HCPCS: 36415; 80048; 80053; 80076; 81001; 82962; 83036; 83735; 83930; 83935; 84100; 84443; 85025; 93005; 94762; 97802; 99284; J7030; J7040; A4216

== ENCOUNTER 2021-10-14 15:48 | Outpatient (CLI) | payer OTHER, SELFPAY ==
[2021-10-14 16:54] LABS: Anion Gap 8 (5-15); BUN 33 mg/dL (7-18); BUN/Creat Ratio 23.9 RATIO (10-20); Calcium,Total 10.3 mg/dL (8.5-10.1); Chloride 100 mmol/L (98-107); Creatinine, Serum 1.38 mg/dL (0.70-1.30); EST Glomerular Filtration Rate 56 mL/min (>60); Est Glom Filt Rate - Afr Amer 68 mL/min (>60); Glucose 72 mg/dL (74-106); Potassium 4.8 mmol/L (3.5-5.1); Sodium Level 132 mmol/L (136-145)
== END 2021-10-14 23:59 | disposition home or self-care (01) ==
LOC: BIMLAB 15:49
PROVIDERS: PCP Internal Medicine; Referring Provider Internal Medicine; Visit Provider Internal Medicine
DX: E11.9 Type 2 diabetes mellitus without complications (principal)
CPT/HCPCS: 36415; 80048

== ENCOUNTER → 2022-09-24 | Outpatient (CLI) | payer OTHER, SELFPAY ==
[2022-09-24 16:53] LABS: ALB/GLOB Ratio 1.1 RATIO (0.9-2.4); AST(SGOT) 24 U/L (15-37); Alanine Aminotransfer ALT/SGPT 31 U/L (16-61); Albumin, Serum 3.9 g/dL (3.2-5.0); Alkaline Phosphatase 82 U/L (45-117); Anion Gap 8 (5-15); BUN 32 mg/dL (7-18); BUN/Creat Ratio 25.6 RATIO (10-20); Calcium,Total 9.7 mg/dL (8.5-10.1); Chloride 102 mmol/L (98-107); Creatinine, Serum 1.25 mg/dL (0.70-1.30); EST Glomerular Filtration Rate 63 mL/min (>60); Est Glom Filt Rate - Afr Amer 76 mL/min (>60); Globulin 3.7 g/dL (2.2-4.2); Glucose 114 mg/dL (74-106); Potassium 4.6 mmol/L (3.5-5.1); Protein, Total 7.6 g/dL (6.4-8.2); Sodium Level 138 mmol/L (136-145)
[2022-09-24 16:55] LABS: Bilirubin, Direct 0.22 mg/dL (0.00-0.30); Cholesterol 126 mg/dL (200); High Density Lipoprotein 35 mg/dL; Triglycerides 273 mg/dL; Very Low Density Lipoprotein 55 mg/dL (5-40)
[2022-09-24 16:57] LABS: Hemoglobin A1c 6.7 % (3.8-5.6)
== END | disposition home or self-care (01) ==
LOC: LAB 15:48
PROVIDERS: PCP Internal Medicine; Referring Provider Internal Medicine Cardiovascular Disease; Visit Provider Internal Medicine Cardiovascular Disease
DX: I25.5 Ischemic cardiomyopathy (principal); E11.69 Type 2 diabetes mellitus with other specified complication; Z95.810 Presence of automatic (implantable) cardiac defibrillator; I10 Essential (primary) hypertension
CPT/HCPCS: 36415; 80053; 80061; 82248; 83036

== ENCOUNTER → 2022-11-05 | Outpatient (CLI) | payer OTHER, SELFPAY ==
--- NOTE | 2022-11-05 14:47 | ECHOCS_ITS ---
Reason For Study: implantable defibrillator Procedure This was a 2D Doppler, Color Flow transthoracic echocardiogram. The study was technically difficult. Due to body habitus. Contrast injection was performed. Exam performed in department. Left Ventricle Normal LV size. Moderately severe segmental systolic dysfunction (see wall motion). The left ventricular ejection fraction is 35 %. Mid-anteroseptal : Severely Hypokinetic. Mid-Anterior : Severely Hypokinetic. Right Ventricle Normal RV size. Normal systolic function. Aortic Valve Trisinus/trileaflet aortic valve. Pulmonic Valve Normal pulmonic valve. Great Vessels Normal aortic root. Pericardium/Pleural No pericardial effusion. Medication 22 gauge I.V. with prn adaptor inserted into right arm. Diluted definity 4.0ml given slow IV push to enhance endocardial definition. MMode/2D Measurements & Calculations LVIDd: 6.5 cm IVSd: 0.69 cm Ao root diam: 3.5 cm LVIDs: 5.2 cm LVPWd: 0.98 cm FS: 19.7 % LAV(MOD-bp): 112.0 ml LA dimension(2D): 4.9 cm LA A4 area: 33.2 cm2 LAV(MOD-bp) Indexed: 46.0 ml/m2 LAV(MOD-sp2): 105.3 ml LAV(MOD-sp4): 112.1 ml RA A4 area: 30.9 cm2 Doppler Measurements & Calculations MV E max zackary: 66.0 cm/sec Ao V2 max: 90.2 cm/sec LV V1 max: 86.4 cm/sec Ao max P.3 mmHg LV V1 max P.0 mmHg Ao V2 mean: 66.1 cm/sec LV V1 mean P.8 mmHg Ao mean P.9 mmHg LV V1 mean: 64.4 cm/sec Ao V2 VTI: 18.1 cm LV V1 VTI: 15.9 cm AV (velocity ratio): 0.88 PA V2 max: 56.4 cm/sec TR max zackary: 178.9 cm/sec PA V2 mean: 46.2 cm/sec TR max P.8 mmHg ECHO/Echo Complete W/ Contrast Interpretation Summary Normal LV size. Moderately severe segmental systolic dysfunction (see wall motion). The left ventricular ejection fraction is 35 %. Contrast injection was performed. Ordering Physician: Philip Paz Referring Physician: Carlos Alberto Fuentes Performed By: Yi Resendiz, RDCS, RVT
== END | disposition home or self-care (01) ==
LOC: CVS 14:45
PROVIDERS: PCP Internal Medicine; Referring Provider Internal Medicine Cardiovascular Disease; Visit Provider Internal Medicine Cardiovascular Disease
DX: Z95.810 Presence of automatic (implantable) cardiac defibrillator (principal); I25.5 Ischemic cardiomyopathy; I10 Essential (primary) hypertension
CPT/HCPCS: 93306; Q9957; A4216; C8929

== ENCOUNTER → 2024-09-20 | Outpatient (CLI) | payer OTHER, SELFPAY ==
[2024-09-20 15:16] LABS: Absolute Lymphocyte Count 2.21 X10^3/uL (0.83-4.51); Absolute Neutrophil Count 4.6 X10^3/uL (2.0-7.7); Basophil# 0.03 X10^3/uL; Basophil% 0.4 % (0-1); Eosinophil# 0.11 X10^3/uL; Eosinophils% 1.5 % (0-5); Hematocrit 49.5 % (40-54); Hemoglobin 17.2 g/dL (13.0-16.5); Lymphocyte # 2.21 X10^3/ul (0.83-4.51); Lymphocyte % 29.2 % (19-41); Mean Corp Hgb Conc 34.7 g/dL (32-36); Mean Corpuscular Hgb 30.8 pg (27.0-32.0); Mean Corpuscular Volume 88.6 fL (80-94); Mean Platelet Vol. 11.4 fl (6.2-12.0); Monocyte# 0.61 X10^3/uL; Monocyte% 8.1 % (0-10); NRBC Flagged by Analyzer 0 % (0-5); Neutrophil # 4.58 X10^3/uL (2.7-7.7); Neutrophil % 60.4 % (47-70); POSITIVE MORPHOLOGY YES; Platelet Count 210 K/mm3 (150-450); RBC Distribution Width CV 12.1 % (11.6-14.6); RBC Distribution Width SD 39.5 fl (35.1-43.9); Red Blood Count 5.59 M/mm3 (4.6-6.2); White Blood Count 7.6 K/mm3 (4.4-11.0)
[2024-09-20 15:17] LABS: Differential Indicated SCAN CRITERIA MET
[2024-09-20 15:57] LABS: Atypical Lymphocyte 3+ %
[2024-09-20 15:59] LABS: Pathologist Review May foll; Platelet Estimate A (ADEQ); Platelet Morphology L; Polychromasia 1+
[2024-09-20 17:52] LABS: Microalbumin,Random Urine < 12.0 mg/L (NO RANGE EST.); Microalbumin:Creatinine Ratio UNABLE TO CALCULATE mg/g CRE
[2024-09-20 18:08] LABS: ALB/GLOB Ratio 1.2 RATIO (0.9-2.4); AST(SGOT) 28 U/L (<=37); Alanine Aminotransfer ALT/SGPT 31 U/L (<=46); Albumin, Serum 4.3 g/dL (3.4-4.8); Alkaline Phosphatase 65 U/L (40-129); Anion Gap 15 (5-15); BUN 29 mg/dL (4-19); BUN/Creat Ratio 22.5 RATIO (10-20); Calcium,Total 10.6 mg/dL (7.6-11.0); Carbon Dioxide 21.1 mmol/L (21.0-32.0); Chloride 95 mmol/L (98-108); Cholesterol 122 mg/dL (<=200); Creatinine, Serum 1.27 mg/dL (0.70-1.20); EST Glomerular Filtration Rate 65 (>60); Globulin 3.7 g/dL (2.2-4.2); Glucose 159 mg/dL (70-99); High Density Lipoprotein 27 mg/dL; Low Density Lipoprotein Calc. 35 mg/dL; PSA,Total - Annual Screen 1.11 ng/mL (0.02-4.00); Sodium Level 131 mmol/L (133-145); Total Bilirubin 1.25 mg/dL (0.00-1.30); Triglycerides 297 mg/dL; Very Low Density Lipoprotein 59 mg/dL (5-40); cholesterol:hdl ratio screen 4.49
== END | disposition home or self-care (01) ==
PROVIDERS: PCP Internal Medicine; Referring Provider Internal Medicine; Visit Provider Internal Medicine
DX: Z12.5 Encounter for screening for malignant neoplasm of prostate (principal); E11.69 Type 2 diabetes mellitus with other specified complication
CPT/HCPCS: 36415; 80053; 80061; 82043; 82570; 84153; 85025; G0103

== ENCOUNTER → 2025-01-02 | Outpatient (CLI) | payer OTHER, SELFPAY ==
[2025-01-02 18:22] LABS: Anion Gap 14 (5-15); BUN 42 mg/dL (4-19); BUN/Creat Ratio 23.4 RATIO (10-20); Calcium,Total 9.8 mg/dL (7.6-11.0); Carbon Dioxide 20.5 mmol/L (21.0-32.0); Chloride 96 mmol/L (98-108); Creatinine, Serum 1.79 mg/dL (0.70-1.20); EST Glomerular Filtration Rate 43 (>60); Glucose 155 mg/dL (70-99); Potassium 4.9 mmol/L (3.3-5.1); Sodium Level 130 mmol/L (133-145)
== END | disposition home or self-care (01) ==
LOC: LAB 13:36
PROVIDERS: PCP Internal Medicine; Referring Provider Internal Medicine; Visit Provider Internal Medicine
DX: E11.69 Type 2 diabetes mellitus with other specified complication (principal); E78.00 Pure hypercholesterolemia, unspecified
CPT/HCPCS: 36415; 80048